=== PATIENT | male | born 1940 | race Caucasian/White ===

== ENCOUNTER 2020-04-14 11:24 | Inpatient (IN) | payer OTHER, BC ==
[~2020-04-14] VITALS: Ht 180.3 cm; Wt 93.0 kg
[2020-04-14 11:25] VITALS: BP 88/55
--- NOTE | 2020-04-14 12:29 | NUR ---
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
[2020-04-14] MEDS ORDERED: ELIQUIS5 MG PO (12:40)
[2020-04-14] MEDS ORDERED: CARVEDILOL12.5 MG PO (12:40)
[2020-04-14] MEDS ORDERED: PRINIVIL20 M1 PO (12:40)
[2020-04-14] MEDS ORDERED: LIPITOR80 MG PO (12:40)
[2020-04-14] MEDS ORDERED: COQ-10100 MG PO (12:40)
[2020-04-14 12:44] LABS: ABSOLUTE NEUTROPHILS 4.5 thou/uL (1.4-8.2); BASOPHILS 0.9 % (0.0-2.0); HEMATOCRIT 48.3 % (42.0-52.0); HEMOGLOBIN 15.9 gm/dL (14.0-18.0); LYMPHOCYTES 28.9 % (24.0-44.0); MCH 27.8 pg (26.0-34.0); MCHC 32.9 g/dL (28.0-37.0); MCV 84.3 fL (80.0-100.0); MONOCYTES 10.7 % (1.0-8.0); PLATELET COUNT 157 thou/uL (150-400); POLYS 55.5 % (36.0-66.0); RBC 5.73 mil/uL (4.50-6.00); RDW 19.1 % (10.5-14.5); WBC 8.2 thou/uL (4.0-11.0)
[2020-04-14] MEDS ORDERED: CARDIO TEA1 EACH PO (12:44)
[2020-04-14] MEDS ORDERED: FISH OIL 1,0001 EAC9 PO (12:44)
[2020-04-14] MEDS ORDERED: LASIX 40 MG TAB40 MG PO (12:45)
[2020-04-14] MEDS ORDERED: ASA81BEC PO (12:45)
[2020-04-14] MEDS ORDERED: NEURONTIN800 MG PO (12:45)
[2020-04-14 12:48] LABS: ANION GAP 7 mmol/L (7-16); BUN 24 mg/dL (7-18); CALCIUM 9.3 mg/dL (8.5-10.1); CHLORIDE 101 mmol/L (98-107); CO2 28 mmol/L (21-32); CREATININE 1.6 mg/dL (0.7-1.3); GLUCOSE 83 mg/dL (74-106); POTASSIUM 4.6 mmol/L (3.5-5.1); SODIUM 136 mmol/L (136-145)
[2020-04-14 12:56] LABS: TROPONIN-I <0.06 ng/mL (<0.06)
--- NOTE | 2020-04-14 13:11 | NUR ---
DR. TAVAREZ AT PHYSICIAN DESK TO DISCUSS PT AND POC WITH DR. MARIA
[2020-04-14 13:18] LABS: ANISOCYTOSIS 1+
[2020-04-14 15:50] VITALS: BP 106/72
[2020-04-14 16:15] VITALS: BP 126/95
--- NOTE | 2020-04-14 18:16 | NUR ---
ADMITTED TO ICU #[id number] WITH CC-TELE OVERFLOW RELATED TO RULE OUT COVID-19 WITH ENHANCED PRECAUTIONS. PT HAS RARE NONPRODUCTIVE COARSE COUGH, ON ROOM AIR, NO RESP DISTRESS. MINOR DISCOMFORT IN L LIP RELATED TO LONG STANDING INTERMITTENT SHINGLES PAIN. CALLED FOR EVENING MEAL AND HAS NOT ARRIVED AT THIS TIME. MEDICATION SECURITY BAG FILLED OUT, SEALED AND SENT TO PHARMACY. DR. TAVAREZ NOTIFIED OF PT ARRIVAL.
--- NOTE | 2020-04-14 18:50 | NUR ---
INITIAL DINNER TRAY DIDN'T ARRIVE WITH ENHANCED PRECAUTIONS. DISCUSSED WITH DIETARY. NEW ORDER PLACED INCLUDING ENHANCED PRECAUTIONS. 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 TOOK TRAY IN SOON IT ARRIVED, LISTENED TO PT CONCERN, EXPLAINED DELAY AND APOLOGIZED FOR THE DELAY.
--- NOTE | 2020-04-14 19:00 | NUR ---
REPORT TO JD AGUILAR.
--- NOTE | 2020-04-14 19:32 | NUR ---
CALLED LAB AT THIS TIME, URINE WAS STILL NOT RECEIVED AND I SENT IT AT 1550 PRIOR TO PT DEPARTING THE UNIT. LAB FOUND IT AND WAS ACCEPTING IT IN.
[2020-04-14 19:35] LABS: URINE BILIRUBIN NEGATIVE (Negative); URINE BLOOD NEGATIVE (Negative); URINE CLARITY CLEAR; URINE COLOR YELLOW; URINE GLUCOSE-RANDOM* NEGATIVE (Negative); URINE KETONES NEGATIVE (Negative); URINE LEUKOCYTES-REFLEX NEGATIVE (Negative); URINE NITRITE-REFLEX NEGATIVE (Negative); URINE PROTEIN (DIPSTICK) NEGATIVE (Negative); URINE SPECIFIC GRAVITY 1.015 (1.005-1.035); URINE UROBILINOGEN 0.2 E.U./dl (0.2-1.0)
[2020-04-14 21:37] VITALS: BP 122/82
[2020-04-14 22:03] VITALS: BP 133/91
[2020-04-15 05:44] LABS: HEMATOCRIT 45.1 % (42.0-52.0); HEMOGLOBIN 14.7 gm/dL (14.0-18.0); MCHC 32.6 g/dL (28.0-37.0); MCV 85.9 fL (80.0-100.0); RBC 5.25 mil/uL (4.50-6.00); RDW 19.1 % (10.5-14.5)
[2020-04-15 06:07] LABS: ALBUMIN 2.8 g/dL (3.4-5.0); CALCIUM 8.4 mg/dL (8.5-10.1); CREATININE 1.6 mg/dL (0.7-1.3); POTASSIUM 4.7 mmol/L (3.5-5.1); TOTAL BILIRUBIN 0.7 mg/dL (0.2-1.0); TOTAL PROTEIN 5.6 g/dL (6.4-8.2)
--- NOTE | 2020-04-15 07:16 | NUR ---
PT X1 NEGATIVE COVID. SECOND COVID WAS SENT THIS AM. PT VITAL SIGNS STABLE. PT ALERT AND ORIENTED x3. PLAN FOR ULTRASOUND TODAY. CONTINUE TO MONITOR. CHART CHECK.
--- NOTE | 2020-04-15 07:24 | EKG ---
[facility] [address] [place] [address] ELECTROCARDIOGRAM REPORT Name: CHERISE SERRANO. Room #: 241-P ADM IN M.R.#: [id number] Admission: 04/14/20 Attend Phys: Fredrick Borja MD Discharge: Date of : 42 Report #: [id number] THIS REPORT FOR: cc: FAM - No family physician/PCP FAM - No family physician/PCP Joel Dunn MD [facility] THIS REPORT FOR: //name// [facility] ED Test Date: 2020-04-14 Test Time: 12:36:16 Pat Name: THOMAS. 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: italo : 1940 Requested By: Derrick Christy Order Number: [id number] MD: Joel Dunn Measurements Intervals [place] Rate: 67 P: [place]: QRS: -19 QRSD: 110 T: 152 QT: 428 QTc: 452 Interpretive Statements Atrial fibrillation Ventricular premature complex Borderline left axis deviation Low voltage, extremity leads Abnrm T, consider ischemia, lateral lds No previous ECG available for comparison Electronically Signed On 04-15-2020 7:23:57 CDT by Joel Dunn [email or web address] <ELECTRONICALLY SIGNED> By: Joel Dunn MD, [facility] 04/15/20 0723 1236 1236 Joel Dunn MD, [facility] /EPI
[2020-04-15 08:47] VITALS: BP 133/73
[2020-04-15 11:34] VITALS: BP 137/83
[2020-04-15 12:00] VITALS: BP 136/74
--- NOTE | 2020-04-15 12:02 | NUR ---
ALERT AND ORIENTED AND VITALS STABLE, DENIES PAIN. WAS NPO FOR US ABDOMEN COMPLETED THIS MORNING. DR. TAVAREZ NOTIFIED OF RESULTS AND DIET OK'D. PATIENT TALKED TO OVER THE PHONE AND UPDATED AND ALSO DR. TAVAREZ STATED HE WILL CALL THE WITH US RESULTS. WILL CONTINUE WITH POC.
--- NOTE | 2020-04-15 12:16 | NUR ---
PATIENT'S SECONG COVID 19 NEG RESULS RECEIVED, PER ALYX MONK, PATIENT MAY BE TAKEN OFF ENHANCED PRECAUTIONS.
--- NOTE | 2020-04-15 15:24 | H ---
[facility] [place] [address] HISTORY AND PHYSICAL Name: CHERISE SERRANO. Room #: [facility]- ADM IN .R.#: [id number] Admission: 04/14/20 Attend Phys: Fredrick Borja MD Discharge: Date of : 42 Report #: [id number] THIS REPORT FOR: cc: [facility] - No family physician/PCP TONY - No family physician/PCP Fredrick Borja MD ~ CC: [facility] physician/PCP Fredrick Borja DATE OF SERVICE: 04/14/2020 CHIEF COMPLAINT: Persistent cough and shortness of breath. HISTORY OF PRESENT ILLNESS: The patient is a 79-year-old male who lives alone. I was contacted by his who currently resides in [place] with their daughter. The told me that the patient has been having problems for at least the last 2 or 3 weeks with coughing severely, loss of appetite and general malaise. He has in the past several months fallen at least twice down stairs in their home but not lately. Nonetheless, even the patient felt unsteady on his feet and has been using a cane lately. He reports easily becoming short of breath trying to climb the stairs, walking through his home. He reports minimal contact with the world outside his home. He has a friend who buys groceries for him sometimes, although he has been shopping in recent weeks and he tends to be rather reclusive. PAST MEDICAL HISTORY: Includes a history of chronic atrial fibrillation, history of coronary artery disease and multiple stent placements at [facility], hypertension, type 2 diabetes mellitus. He was disabled from work, I believe, with the [employer], due to a back problem many years ago. He also has hyperlipidemia. HOME MEDICATIONS: Include enteric-coated aspirin 81 mg by mouth daily, atorvastatin 80 mg by mouth daily, carvedilol 12.5 mg by mouth twice daily, fish oil 1000 mg by mouth twice daily, furosemide 40 mg by mouth every morning, gabapentin 800 mg by mouth every night, lisinopril 20 mg by mouth daily, Coenzyme Q10 100 mg by mouth twice daily, Eliquis 5 mg by mouth twice daily. He also uses cardio tabs tea extract supplements daily. ALLERGIES: He has no known drug allergies. FAMILY HISTORY: Significant for longevity. SOCIAL HISTORY: The patient is retired, disabled times many years. He and his are currently . He has as a stressor the knowledge that his daughter has developed a sudden spinal condition and is unable to walk and is having an MRI today to assess her. He has no vices such as smoking or [address] [address] HISTORY AND PHYSICAL Name: CHERISE SERRANO. Room #: [facility] IN ..#: [id number] Admission: 04/14/20 Attend Phys: Fredrick Borja MD Discharge: Date of : 42 Report #: [id number] recreational drug or alcohol use. The patient's favorite hobby is using his metal detector to find old coins and civil war relics and such. REVIEW OF SYSTEMS: No headaches. He does have some slight dizziness when he ambulates too quickly. Falls as described above, otherwise he has been using a cane and has not had a fall in several months. No chest pain. His appetite is not very good lately but no nausea or vomiting. No leg swelling problems. No new back pain issues. PHYSICAL EXAMINATION: VITAL SIGNS: At my office today, the patient's pulse was 59. His oxygen saturation on room air was 96%. His blood pressure was 128/68, but this was quite diminished in the Emergency Room and his systolic blood pressure was at one point recorded in the high 70s. His respiratory rate was 16-20. GENERAL: The patient is unkempt, older white male with shortness of breath after minimal exertion. HEENT: The extraocular muscles are intact. Oropharynx is moist and pink. No lesions, no exudates. Sinuses are nontender and hearing grossly normal. NECK: Without adenopathy or thyromegaly or mass. No jugular venous distention. LUNGS: Coarse to listen to as regards breath sounds bilaterally. I did not hear any wheezing. CARDIOVASCULAR: Reveals an irregularly irregular but slow rhythm. ABDOMEN: Soft. Bowel sounds are present. No visceromegaly or masses. EXTREMITIES: Without cyanosis or clubbing or peripheral edema. NEUROLOGIC: Cranial nerves II-XII are intact. Cranio-cerebellar exam is benign except that the gait does require the cane for balance. No focal deficits of general motor function, although his strength is clearly diminished recently. I watched him get up from the chair and he needed both arms to be able to get out of a normal waiting room chair. He did not have a Romberg test today. ASSESSMENT AND PLAN: 1. Probable chronic obstructive pulmonary disease exacerbation, possibly due to the COVID-19 - We will start the patient on intravenous antibiotics and will also give some intravenous steroids. His labs did not suggest severe disease, but with a history of falls and the persistent coughing and loss of appetite, this patient is at very high risk for having falls. He does admit to getting dizzy when he stands up. I will admit him and provide a couple of serial tests for COVID-19 to make sure that he is not getting sick from that virus. We will aggressively manage his pulmonary problems and repeat a chest x-ray in the next day or 2 since his first one was otherwise benign. He does have a nodule that is probably calcified granuloma in the apex, I believe, on the left side. 2. Hypotension - is this developing sepsis ? We will hydrate cautiously. I would like to avoid excessive rehydration and potential congestive heart failure from overly aggressive fluid replacement. 3. Type 2 diabetes mellitus - I would expect his blood sugars to rise with the steroids, but his overall control has been reasonably good in the last couple of [facility] [address] [place] [address] HISTORY AND PHYSICAL Name: CHERISE SERRANO. Room #: [address] [place] [address] [place] [facility]#: [id number] Admission: 04/14/20 Attend Phys: Fredrick Borja MD Discharge: Date of : 42 Report #: [id number] years. He visits the office infrequently. 4. Postherpetic neuralgia - the patient has had this problem for several years and uses the gabapentin to help control the burning. 5. Coronary artery disease - this is currently asymptomatic. <ELECTRONICALLY SIGNED> By: Fredrick Borja MD 04/15/20 1524 2138 Fredrick Borja MD /nt
[2020-04-15 16:00] VITALS: BP 118/73
--- NOTE | 2020-04-15 16:51 | NUR ---
PER DR. TAVAREZ AFTER ASSESSING PATIENT EARLIER TODAY, ADMISSION STATUS CHANGED TO MS.
--- NOTE | 2020-04-15 17:21 | NUR ---
Chart reviewed and case discussed with the attending. Pt is currently in ICU r/o covid. His pcp is Dr. Borja who notes that pt's spouse stays in [place] with their dtr. She is reachable via her cell phone and she is aware that he is here. The pt lives alone in their home of many years. He is normally indep with gait and adl's but did acknowledge to the attending that he had had a couple of falls on the basement stairs. PT/OT evals are pending. [place] benefit [place] f[place] and his may be coming back in town. He has some extended family here as well but tends to be isolated socially. Will f/u along and visit with the pt once he is out of enhanced precautions.
--- NOTE | 2020-04-15 23:25 | NUR ---
TRANSFER TO [facility] AND REPORT GIVEN TO SHIFT TO ASSUME NURSING CARE OF PT. WILL TRANSFER WITH ALL BELOINGINGS
[2020-04-16 00:25] VITALS: BP 118/78
--- NOTE | 2020-04-16 00:49 | NUR ---
PT ARRIVED FROM ICU AT 0015. DENIES PAIN. VOIDING PER URINAL. RESTING COMFORTABLY. CALL LIGHT WITHIN REACH. FREQUENT OBSERVATION.
[2020-04-16 04:51] VITALS: BP 99/62
[2020-04-16 08:00] VITALS: BP 122/74
--- NOTE | 2020-04-16 14:50 | NUR ---
SW reviewed chart and spoke with nursing. Pt was transferred to from ICU. Pt's COVID-19 test was negative. Pt remains on IV abx. JEREMIAS met with pt at bedside. Plan is for pt to return home when medically stable. Pt states he normally uses a cane to assist with ambulation. PT/OT ordered to evaluate pt. SW is following to assist as needed with discharge planning.
--- NOTE | 2020-04-16 16:45 | EKG ---
[facility] [address] [place] [address] ELECTROCARDIOGRAM REPORT Name: CHERISE SERRANO. Room #: 360-P ADM IN M.R.#: [id number] Admission: 04/14/20 Attend Phys: Fredrick Borja MD Discharge: Date of : 42 Report #: [id number] THIS REPORT FOR: cc: TONY - Brittany family physician/PCP TONY - Brittany family physician/PCP Joel Dunn MD [facility] THIS REPORT FOR: //name// [facility] Test Date: 2020-04-16 Test Time: 08:38:05 Pat Name: THOMAS. 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[facility] : 1940 Requested By: Claribel Thorpe Order Number: [id number] MD: Joel Dunn Measurements Intervals [place] Rate: 84 P: [place]: QRS: -20 QRSD: 114 T: 147 QT: 386 QTc: 457 Interpretive Statements Atrial fibrillation Ventricular premature complex Borderline intraventricular conduction delay Abnrm T, consider ischemia, anterolateral lds Compared to ECG 04/14/2020 12:36:16 No significant changes Electronically Signed On 04-16-2020 16:44:45 CDT by Joel Dunn [email or web address] <ELECTRONICALLY SIGNED> By: Joel Dunn MD, [facility] 04/16/20 1644 0838 0838 Joel Dunn MD, [facility] /EPI
[2020-04-16 17:00] VITALS: BP 123/81
--- NOTE | 2020-04-16 18:16 | NUR ---
ASSUMED PATIENT CARE TODAY AT APPROXIMATELY 7AM. PATIENT AWAKE ORIENTED THROUGHOUT SHIFT, ASSESSMENT AND MEDS CHARTED. PATIENT RECIEVING IV STEROIDS AND BLOOD GLUCOSE ELEVATED THROUGHOUT SHIFT, CHANGED SS FROM LOW TO MODERATE SCALE THIS SHIFT PER FACILITY PROTOCOL AND PATIENT TOLERATED WELL. TOLERATING DIET. VSS. WORKING WITH PT/OT WALKING IN HALLWAY AND STAIRWELL. UP IN BEDSIDE CHAIR FROM BREAKFAST TIME UNTIL AFTER LUNCH. BED LINEN CHANGED AND GIVEN BED BATH BY OT THIS SHIFT. PATIENT GIVEN LAXATIVE THIS SHIFT FOR BM, NO BM YET SINCE MONDAY ALSO GAVE ORDER FOR ANOTHER LAXATIVE FOR TOMORROW IN AM IF HE STILL DOES NOT HAVE A BM.
[2020-04-16 21:00] VITALS: BP 129/79
[2020-04-17 04:45] VITALS: BP 119/71
[2020-04-17 05:43] LABS: HEMATOCRIT 44.6 % (42.0-52.0); HEMOGLOBIN 14.4 gm/dL (14.0-18.0); MCHC 32.2 g/dL (28.0-37.0); RBC 5.12 mil/uL (4.50-6.00); RDW 19.2 % (10.5-14.5)
[2020-04-17 05:59] LABS: CALCIUM 7.8 mg/dL (8.5-10.1); CREATININE 1.8 mg/dL (0.7-1.3); POTASSIUM 4.4 mmol/L (3.5-5.1)
[2020-04-17 07:48] VITALS: BP 131/86
[2020-04-17 15:30] VITALS: BP 129/82
--- NOTE | 2020-04-17 15:34 | NUR ---
ASSUMED PATIENT CARE AT APPROXIMATELY 0700 THIS MORNING. PATIENT AWAKE AND ALERT, VSS. MEDS AND ASSESSMENTS CHARTED. WORKED WITH PT/ OT THIS SHIFT. WAS ABLE TO HAVE SHOWER THIS MORNING. PATIENT ABLE TO COUGH UP THICK WHITE MUCUS THIS AFTERNOON. FLUTTER VALVE ORDERED FOR PATIENT. ENCOURAGED PATIENT TO PERFORM WITH HOURLY ROUNDING. PATIENT DEMONSTRATES UNDERSTANDING OF USE OF FLUTTER VALVE.
[2020-04-17 19:18] VITALS: BP 131/89
--- NOTE | 2020-04-17 22:49 | NUR ---
ASSUMED PT CARE AT 1900. PT A&OX4, PLEASANT - CRACKING JOKES. REPORTS PAIN TO LEFT SIDE OF FACE DUE TO SHINGLES. COARSE PRODUCTIVE COUGH NOTED. NO BM THUS FAR, PT IS BECOMING QUITE FRUSTRATED. LITTLE BOWEL SOUNDS HEARD. ANTIBIOTICS AND FLUIDS INFUSING PER ORDER. NO SIGNIFICANT CHANGES OF RIGHT NOW, WILL CONTINUE TO MONITOR.
[2020-04-18 06:02] VITALS: BP 129/89
[2020-04-18 07:48] VITALS: BP 149/92
--- NOTE | 2020-04-18 13:06 | NUR ---
PT IS A&OX3, PT 'S VS ARE STABLE, PT STILL HAS COUGHING, BUT PT DENIES SOB , PT IS CONTINUING IV FLUID, PT HAS WALK IN HALLWAY WITH PT, PT STAYS IN CHAIR NOW.
[2020-04-18 15:21] VITALS: BP 127/84
[2020-04-18 19:06] VITALS: BP 114/72
--- NOTE | 2020-04-19 04:32 | NUR ---
ASSESSMENT: PT REMAIN ALERT AND ORIENT TIMES FOUR. UP TO BR TIMES ONE DURING THE SHIFT. C/O MILD FACIAL PAIN RATE PAIN 1-2/10 ON NUMERIC PAIN SCALE. PT SLEPT WELL DURING THE NIGHT POST EATING A HS SNACK. STILL NO BM TIMES FOUR DAYS. MIRALAX AND SENNA ARE SCHEDULED. AFIB PER MONITOR, OCCASSIONAL V-PACED. AICD NOTED IN LEFT UPPER CHEST AREA. BLOOD PRESSURE ELEVATED (SEE REVIEW). DENIES DIZZINESS, RINGING IN THE EARS, BLURRED VISION. WILL CONTINUE TO MONITOR. SLOW PROGRESS.
[2020-04-19 05:22] VITALS: BP 158/106
[2020-04-19 07:34] VITALS: BP 148/101
[2020-04-19 15:30] VITALS: BP 123/76
--- NOTE | 2020-04-19 17:26 | NUR ---
PT CARE ASSUMED AT 0700, PT ALERT AND ORIENTED X4, HARD OF HEARING AT TIMES. PT DENIES ANY CHEST PAIN, NAUSEA AND VOMITING. PT COMPLAINS OF PAIN WITH COUGH, SOUNDS CONGESTED, YET NON PRODUCTIVE. PT IS ON ROOM AIR, NO SIGNS OF DISTRESS NOTED. PT COMPLAINS OF CONTIPATION BOWEL SOUNDS ACTIVE,USES THE URINAL. DENIES ANY NEEDS ROSMERY, CALL LIGHT AND TABLE WITHIN REACH. BED AT LOWEST LEVELW WITH ALARM ON.
[2020-04-19 19:15] VITALS: BP 126/82
--- NOTE | 2020-04-19 20:56 | NUR ---
UPON ASSESSMENT PT WAS PLEASANT. RN TALKED ABOUT POSSIBLE DISCHARGE AND CARE PLAN AT THIS TIME AND PAIN MANAGEMENT WELL, PT STATED THAT ONLY THING THAT REALLY HELPS IS A WARM CLOTH OF THE L SIDE OF THE FACE. WARMED WET CLOTH WAS PROVIDED PER PT REQUEST. AT THIS TIME PT STATED BEING COMFORABLE. BILATERALLY THE UPPER LOBES WERE WHEEZY AND DIM ON THE BOTTOM. GI, PT'S ABDOMEN IS RIGID AND TYPHANIC UPON PERCUSSION AND HYPOACTIVE UPON AUSCULTATION. NO ABDOMINAL PAIN AT THIS TIME AND PT IS STILL PASSING GAS. BOWEL REGIMEN IS BEING FOLLOWED. WILL CONTINUE TO FOLLOW POC
[2020-04-20 03:10] VITALS: BP 126/82
[2020-04-20 07:27] VITALS: BP 142/99
--- NOTE | 2020-04-20 10:52 | NUR ---
CARE ASSUMED AT 0700, PT ALERT AND ORIENTED X4, HEARD OF HEARING AT TIMES. PT DENIES ANY CHEST PAIN, NAUSEA AND VOMITNG. PT HAS A STRONG NON PRODUCTIVE COUGH, NO SIGNS OF DISTRESS NOTED. PT HASNT HAD A BOWEL MOVEMENT FOR ALMOST A WEEK, STOOL SOFTNER AND MIRALX BEING GIVEN PER ORDER. BOWELS HYPOACTIVE, HARD WHEN PALPATED. CALL LIGHT AND TABLE IN REACH. BED AT LOWEST LEVEL WITH ALARM.
--- NOTE | 2020-04-20 13:40 | NUR ---
JEREMIAS reviewed chart and spoke with nursing. Pt remains on IV steroids and IV abx. Therapy has been working with pt to assist with recommendations for discharge needs. JEREMIAS placed call to pt's room. No answer. JEREMIAS is following to assist as needed with discharge planning.
--- NOTE | 2020-04-20 14:50 | NUR ---
Assess for length of stay. admit with copd exacerbation, covid negative. Hx diabetes and BG more aggravated by steroids. BG 256-336 and past A1C 7. Eating 100% of meals. Will add carb control to regular diet, otherwise low nutrition risk
[2020-04-20 15:31] VITALS: BP 135/89
[2020-04-20 20:11] VITALS: BP 132/95
--- NOTE | 2020-04-21 04:35 | NUR ---
PT SLEPT MOST OF THE NIGHT. RESPIRATIONS EVEN AND UNLABORED. PT DID STATE THAT HE STILL FEELS SOA WITH EXERTION. NON-PRODUCTIVE COUGH NOTED. PT DID C/O SOME SORENESS IN HIS CHEST WITH COUGHING, BUT DID NOT WANT ANY PAIN MEDICATION. GOOD URINE OUTPUT. FALL PRECAUTIONS IN PLACE, EXCEPT PT REFUSED BED ALARM. HE UNDERSTANDS HE NEEDS TO CALL FOR ASSISTANCE BEFORE GETTING UP. HE HAS BEEN COMPLIANT WITH INSTRUCTION. PROGRESSING TOWARD POC GOALS. WILL CONTINUE TO MONITOR.
[2020-04-21 06:40] VITALS: BP 160/113
[2020-04-21 07:59] VITALS: BP 152/107
--- NOTE | 2020-04-21 14:27 | NUR ---
ORDERS FOR TRANSFER TO [facility], [place] [id number]. REPORT GIVEN TO JD DIAMOND. PT BELONGING PACKED AND SENT DOWN WITH PT
[2020-04-21 15:09] VITALS: BP 142/95
--- NOTE | 2020-04-21 15:17 | NUR ---
ASSUMED PATIENT CARE THIS AM AT APPROXIMATELY 7AM. PATIENT REMAINED AWAKE AND ORIENTED THIS SHIFT. WORKED WITH PHYSICAL THERAPY AND AMBULATED IN HALLWAY AND STAIRS THIS SHIFT. WORKED WITH OT AND HAD BATH, THERAPIST INFORMED NURSE THAT PATIENT TOLERATED WELL BUT REQUIRED BREAKS FOR SOME SHORTNESS OF BREATH. ASSESSMENTS AND MEDS CHARTED. PATIENT TRANSFERRED TO 4W THIS SHIFT.
--- NOTE | 2020-04-21 19:47 | NUR ---
Assumed pt care this pm, [facility]. VS stable blood sugar monitoring with medicatiosn given as per emar. Pt is up ad jeremiah , vs is able. POC followed with no signs or verbalizations of distress noted. Endorsed to the night nurse.
[2020-04-21 20:25] VITALS: BP 107/79
--- NOTE | 2020-04-22 04:36 | NUR ---
Pt. rested quietly during the night when checked on during frequent rounds. Up to the bathroom with stand by assistance. Pt. voices some soreness from coughing in upper abdomen, but no need for pain med. No c/o shortness of air.
[2020-04-22 06:16] LABS: HEMATOCRIT 47.5 % (42.0-52.0); HEMOGLOBIN 15.5 gm/dL (14.0-18.0); MCH 28.2 pg (26.0-34.0); MCHC 32.6 g/dL (28.0-37.0); MCV 86.6 fL (80.0-100.0); RBC 5.49 mil/uL (4.50-6.00); RDW 19.8 % (10.5-14.5); WBC 10.8 thou/uL (4.0-11.0)
[2020-04-22 06:41] LABS: CALCIUM 8.1 mg/dL (8.5-10.1)
[2020-04-22 06:49] LABS: POTASSIUM 6.1 mmol/L (3.5-5.1)
[2020-04-22 07:09] VITALS: BP 144/95
[2020-04-22 08:56] LABS: CALCIUM 8.2 mg/dL (8.5-10.1); CREATININE 2.1 mg/dL (0.7-1.3)
[2020-04-22 08:58] LABS: POTASSIUM 5.7 mmol/L (3.5-5.1)
--- NOTE | 2020-04-22 12:30 | NUR ---
Assumed pt care this am, VS stable lung sounds are coarse. Pain noted on accessory muscles used for coughing. Pt stated thiscough is so much batter compared to precous days, this is the best he has been. Xray done, seen by , orders received for pt to transfer back to [facility] for covid rule out. Report given to nurse, pt has been transferred via bed to [facility]. POC followed with no signs or verbaliuzation of distress noted.
[2020-04-22 17:17] VITALS: BP 116/73
--- NOTE | 2020-04-22 18:14 | NUR ---
ASSUMED CARE APPROX 1230. PT TRANSFERRED FROM 4 TO THIS UNIT. ALERT AND ORIENTED X4. ASSESSMENT CHARTED AND VSS. COVID SWAB OBTAINED. AWAITING RESULTS. PT DENIES ACUTE PAIN. PT ON ROOM AIR. NO RESPIRATORY DISTRESS OR DYSPNEA NOTED. WILL CONTINUE TO MONITOR.
[2020-04-22 19:15] VITALS: BP 116/89
--- NOTE | 2020-04-22 19:40 | NUR ---
COVID NEGATIVE, SPOKE TO DR. LOONEY, HE WILL LOOK AT INFORMATION FOR PT.
--- NOTE | 2020-04-22 19:48 | NUR ---
PT SLEEPING IN BED, OPENED EYES FOR VS AND ASSESSMENT. FACE REDDENED, LUNGS WITH WHEEZES. BED ALARM ON. IV INTACT.
--- NOTE | 2020-04-22 19:53 | NUR ---
DR LOONEY AND DR TAVAREZ NOTIFIED OF NEG COVID RESULTS. NO NEW ORDERS.
[2020-04-23 05:13] VITALS: BP 114/83
[2020-04-23 06:31] LABS: HEMATOCRIT 46.3 % (42.0-52.0); HEMOGLOBIN 15.3 gm/dL (14.0-18.0); MCH 28.6 pg (26.0-34.0); MCHC 33.1 g/dL (28.0-37.0); MCV 86.4 fL (80.0-100.0); RBC 5.35 mil/uL (4.50-6.00); RDW 20.3 % (10.5-14.5); WBC 10.3 thou/uL (4.0-11.0)
[2020-04-23 07:09] LABS: ALBUMIN 2.3 g/dL (3.4-5.0); CALCIUM 7.6 mg/dL (8.5-10.1); CREATININE 1.7 mg/dL (0.7-1.3); POTASSIUM 5.2 mmol/L (3.5-5.1); TOTAL BILIRUBIN 0.6 mg/dL (0.2-1.0); TOTAL PROTEIN 4.9 g/dL (6.4-8.2)
[2020-04-23 07:31] VITALS: BP 124/92
--- NOTE | 2020-04-23 10:59 | NUR ---
report from bedside nurse, possible can come off isolation. uziel iv medication. will cont following as needed for dc needs. dc home when medical stable for dc.
[2020-04-23 16:58] VITALS: BP 125/76
[2020-04-23 19:58] VITALS: BP 111/72
[2020-04-24 04:07] VITALS: BP 110/68
--- NOTE | 2020-04-24 05:37 | NUR ---
PT PROGRESSING TOWARDS DC POSSIBLE TODAY PER PCP IF AM LABS ARE SHOWING IMPROVEMENT. FOLLOWING POC WITH IVF GTT. PT WAS CLEARED BY ID TO BE REMOVED FROM ISOLATION COVID-. PT VOIDS VIA URINAL AND AMBULATES WITH CANE AND STAND BY ASSIST. HOURLY ROUNDING.
[2020-04-24 08:03] VITALS: BP 122/80
[2020-04-24] MEDS ORDERED: CEFDINIR300 MG PO (10:53)
[2020-04-24] MEDS ORDERED: NYSTATIN100000 UNI SW&SWALLOW (10:53)
[2020-04-24] MEDS ORDERED: IPRAT-ALBUT 0.5-3 ML INH (10:54)
[2020-04-24] MEDS ORDERED: GABAPENTIN 100100 MG PO (10:56)
[2020-04-24] MEDS ORDERED: BENZONATATE100 MG PO (10:56)
[2020-04-24] MEDS ORDERED: GUAIFEN-CODEINE10 ML PO (10:57)
[2020-04-24] MEDS ORDERED: MIRALAX17 GM PO (10:58)
[2020-04-24] MEDS ORDERED: SENNA-TIME S T1 EACH PO (10:58)
[2020-04-24] MEDS ORDERED: PREDNISONE 10 M10 MG PO (10:59)
[2020-04-24] MEDS ORDERED: PREDNISONE 20 M20 M1 PO (10:59)
[2020-04-24] MEDS ORDERED: HUMALOG100 UNIT/1 SUBQ (11:00)
[2020-04-24] MEDS ORDERED: GLUCAGEN1 MG/1 ML IM (11:01)
[2020-04-24 11:06] VITALS: BP 118/82
[2020-04-24 11:10] LABS: HEMATOCRIT 48.1 % (42.0-52.0); HEMOGLOBIN 15.9 gm/dL (14.0-18.0); MCH 28.6 pg (26.0-34.0); MCV 86.8 fL (80.0-100.0); RBC 5.55 mil/uL (4.50-6.00); RDW 20.3 % (10.5-14.5); WBC 10.7 thou/uL (4.0-11.0)
[2020-04-24 11:34] LABS: CALCIUM 7.7 mg/dL (8.5-10.1); CREATININE 1.8 mg/dL (0.7-1.3); POTASSIUM 5.1 mmol/L (3.5-5.1)
--- NOTE | 2020-04-24 11:51 | NUR ---
ASSUMED CARE AT 0700, SHUFT ASSESSMENT DONE, MEDS GIVEN, VSS. DENIES PAIN, NAUSEA, VOMITING. ROOM AIR, UP WITH STANDBY ASSIST. AFIB ON THE MONITOR. COVID NEGATIVE. WILL CONTINUE TO ASSESS AND ASSIST WITH ADLs.
[2020-04-24 15:30] VITALS: BP 118/82
--- NOTE | 2020-04-24 16:18 | D ---
[facility] [address] [place] [address] DISCHARGE SUMMARY Name: CHERISE SERRANO. Room #: 360-P ADM IN ..#: [id number] Admission: 04/14/20 Attend Phys: Fredrick Borja MD Discharge: Date of : 41 Report #: [id number] THIS REPORT FOR: cc: TONY - No family physician/PCP TONY - No family physician/PCP Fredrick Borja MD ~ THIS REPORT FOR: //name// CC: Cody Kellogg MD [facility] physician/PCP Bruna Borja DATE OF SERVICE: 04/24/2020 HOSPITAL COURSE: The patient is a 79-year-old male who presented with persistent cough for a month and increasing problems with shortness of breath. He was sent to the Emergency Room for further evaluation and felt to be a reasonable admission for suspected COVID-19 viral infection and was started on aggressive respiratory treatments, IV antibiotics and steroids. His COVID test came back negative and he responded slowly, but appropriately to respiratory therapy and antibiotics and steroids as described above. He was also hypotensive. There was a concern that he might be developing sepsis and was started on intravenous fluids to which he responded appropriately. He presented with a creatinine of 1.6 which eventually aramis to 2.1. His BUN was consistently in the 55 to just over 60 range. Our impression is that he has chronic kidney disease, stage 2 to stage 3 and it suddenly worsened during this hospital stay. He developed hyperkalemia with a potassium of 6.1 at one point. He was taken off of lisinopril, 40 mg daily. The diuretics were continued; Lasix was used daily to help bring down his potassium level which was down to 5.1 by the date of discharge. The patient does have a history of coronary artery disease and it is with trepidation that I took him off of his SANFORD inhibitor. Strongly recommended that he be seen by his program proposals coordinator at [facility], Dr. Mo Krishnamurthy for reassessment of this regimen for managing his afterload reduction in renal function. The patient does have type 2 diabetes mellitus as well and would benefit from being able to take an SANFORD inhibitor or an ARB. However, given the sudden onset of acute renal insufficiency, I would refer the patient to recover from his immediate illness before we attempt any other interventions. Approximately 48 hours prior to this discharge, we obtained a chest x-ray for [address] [address] DISCHARGE SUMMARY Name: CHERISE SERRANO. Room #: 360-P [facility]#: [id number] Admission: 04/14/20 Attend Phys: Fredrick Borja MD Discharge: Date of : 41 Report #: [id number] followup, the patient developed some basilar congestion and had begun coughing up mucus plugs. The chest x-ray did show some basilar infiltrates on the right and this was consistent with physical gym. Because of concerns that he may have developed COVID-19 infection while hospitalized, that test was repeated. The patient was moved back into isolation and an Infectious Diseases consult was obtained with Dr. Cody Kellogg. The COVID-19 repeat study was also negative. Dr. Kellogg felt the "infiltrate" was in fact merely atelectasis on the chest x-ray. At the time of discharge, the patient will be going home on cefdinir 300 mg by mouth twice a day for an additional 5 days. He will be on a prednisone steroid taper. He will continue on apixaban 5 mg by mouth twice daily, aspirin 81 mg by mouth daily, atorvastatin calcium 80 mg by mouth daily, Tessalon Perles 100 mg by mouth twice daily, carvedilol 12.5 mg by mouth twice daily, Coenzyme Q10 100 mg by mouth twice daily, fish oil 1000 mg by mouth twice daily, furosemide 40 mg by mouth every morning, gabapentin 100 mg by mouth in the morning and at lunchtime followed by 800 mg at bedtime every night, Robitussin-AC 2 teaspoons by mouth every 6 hours as needed for control of cough, nystatin swish and swallow a teaspoon by mouth 4 times a day for another 10 days to treat oropharyngeal current candidiasis, MiraLax 17 grams in a glass of water by mouth twice daily for constipation, Senokot-S one tablet by mouth twice daily has been discontinued. Prednisone taper will be as follows: The patient will get 20 mg daily for 5 more days, then 10 mg daily for 5 more days and then it stops. The patient will follow up with Dr. Borja in 2 weeks. He is to follow up with his program proposals coordinator at the first available appointment with them. DISCHARGE DIAGNOSES: Will be as follows: 1. Chronic kidney disease, stage 2. 2. Acute kidney injury. 3. Chronic obstructive pulmonary disease exacerbation. 4. Hypotension. 5. Oropharyngeal candidiasis. 6. Type 2 diabetes mellitus and steroid hyperglycemia. 7. Chronic atrial fibrillation. 8. Postherpetic neuralgia involving C1. 9. Hypertension history. 10. Hyperlipidemia and coronary artery disease. 11. Newly diagnosed abdominal aortic aneurysm (approximately 3 cm in size). [facility] [address] [place] [address] DISCHARGE SUMMARY Name: CHERISE SERRANO. Room #: 360-P [facility] IN M.R.#: [id number] Admission: 04/14/20 Attend Phys: Fredrick Borja MD Discharge: Date of : 41 Report #: [id number] I have recommended to the patient that he have a followup ultrasound of his abdominal aortic aneurysm at least annually going into the future. <ELECTRONICALLY SIGNED> By: Fredrick Borja MD 04/24/20 1618 1149 1220 Fredrick Borja MD /nt
== END 2020-04-24 17:07 | disposition home health service (06) | DRG 190 ==
LOC: ER 11:24 → 3W 13:14 → EROBS 13:14 → ICU 13:14 → 3W 04-15 23:48 → 4W 04-21 14:48 → 3W 04-22 10:11
PROVIDERS: Emergency Medicine; ADMIT Internal Medicine; ATTEND Internal Medicine
DX: J44.0 Chronic obstructive pulmonary disease with (acute) lower respiratory infection (principal); J18.9 Pneumonia, unspecified organism; B02.29 Other postherpetic nervous system involvement; N17.9 Acute kidney failure, unspecified; I48.20 Chronic atrial fibrillation, unspecified; B37.0 Candidal stomatitis; J44.1 Chronic obstructive pulmonary disease with (acute) exacerbation; I95.9 Hypotension, unspecified; N18.3 Chronic kidney disease, stage 3 (moderate); E87.5 Hyperkalemia; I25.10 Atherosclerotic heart disease of native coronary artery without angina pectoris; E11.22 Type 2 diabetes mellitus with diabetic chronic kidney disease; E11.65 Type 2 diabetes mellitus with hyperglycemia; I12.9 Hypertensive chronic kidney disease with stage 1 through stage 4 chronic kidney disease, or unspecified chronic kidney disease; E78.5 Hyperlipidemia, unspecified; I71.4 Abdominal aortic aneurysm, without rupture; K59.00 Constipation, unspecified; E86.0 Dehydration; Z20.828 Contact with and (suspected) exposure to other viral communicable diseases; Z95.5 Presence of coronary angioplasty implant and graft; Z79.899 Other long term (current) drug therapy
CPT/HCPCS: 10040; 10045; 10080; 10203; 10879

== ENCOUNTER 2020-05-01 17:06 | Inpatient (IN) | payer OTHER, BC ==
[~2020-05-01] VITALS: Ht 180.3 cm; Wt 92.1 kg
--- NOTE | ~2020-05-01 | HC ---
[facility] [address] [place] [address] CONSULTATION Name: CHERISE SERRANO Room #: 451-[facility] IN M.R.#: [id number] Admission: 05/01/20 Attend Phys: Joselyn Su Discharge: Date of : 41 Report #: [id number] THIS REPORT FOR: cc: TONY - Brittany family physician/PCP TONY - Brittany family physician/PCP Eric Cortez MD ~ CC: [facility] physician/PCP Joselyn Su DATE OF SERVICE: 05/01/2020 HISTORY OF PRESENT ILLNESS: The patient is a 79-year-old white male with history of multiple falls over the last couple of weeks, especially the last couple of days. He apparently had 20+ falls the day of admission. He is noted to have atrial fibrillation and has been on long-term anticoagulation. He is supposed to use a walker at home because of his balance problems, but at home, he was noted to not be fit for a walker, so he often does not use it. He uses a cane. He did apparently hit his head approximately [address] of the head was negative. He was diagnosed with some mild hypotension given a liter of fluid. He was noted to have acute renal insufficiency superimposed on chronic kidney disease. He also has some complaints of shortness of breath and there was concern regarding aspiration and he has been treated with Solu-Medrol IV, which he is currently on and following chest x-ray. He is also on levofloxacin. He is a past smoker. Chest x-ray showed some left lower lobe opacities, could be due to atelectasis or pneumonia. Speech therapy saw him and he did undergo a video swallow study with recommendations for mechanical soft, ground diet with some ongoing instructions recommended. He does tend to fatigue with mastication and swallowing. We are seeing him in rehabilitation medicine consultation. PAST MEDICAL HISTORY: Includes atrial fibrillation, on long-term anticoagulation, history of an SD, coronary artery disease with cardiac stents, diabetes mellitus type 2, shingles, hypertension, hyperlipidemia, chronic back pain, COPD, peripheral neuropathy, and postherpetic neuralgia. PAST SURGICAL HISTORY: Cholecystectomy, deviated septum repair, AICD with pacemaker placement. MEDICATIONS: Please see the full medication listing. ALLERGIES: LISINOPRIL. SOCIAL HISTORY: Lives in a house alone. He notes he is , but and his lives in [place] apparently near their daughter. He has two sisters in the area that are involved and are retired. He notes his house has a lot of [facility] [address] [place] [address] CONSULTATION Name: CHERISE SERRANO Room #: 451-P [facility] IN .R.#: [id number] Admission: 05/01/20 Attend Phys: Joselyn Su Discharge: Date of : 41 Report #: [id number] things in the hallway boxes, etc. apparently from his mother and from his and other family members. Apparently, his sisters have tried to clear some of it out in the past, but he still has a lot in the way. He has 3 steps in with 12 to the basement. No handrails. 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 FAMILY HISTORY: Noncontributory. REVIEW OF SYSTEMS: Notes some shortness of breath with decreasing activity. Notes that his legs are just overall weak and that they can turn to jelly. He has some decreased sensation in distal lower extremities. No current chest pain and no abdominal discomfort. PHYSICAL EXAMINATION: GENERAL: A 79-year-old white male in no obvious distress. VITAL SIGNS: He has a temperature of 36.6, pulse 86, respirations 18, and blood pressure 105/102. NEUROLOGIC: He is alert. He does follow basic 1 step commands. Facies appeared symmetric. There is some definite delay in his responses, but he appears reasonably appropriate. Facies are symmetric. Nasal prong O2 is in place. EXTREMITIES: Functional range of motion of both upper extremities. Strength is grade 4-/5. DTRs are trace to 1. Lower extremities, no focal calf swelling, functional range of motion, strength is grade 3+ to 4-/5. He has been min assist coming to stand and has been ambulating with min assist with a cane with decreased balance. He does have decreased sensation, left large toe to proprioception with some decrease in stocking distribution. ASSESSMENT: A 79-year-old white male with the following problems: 1. Multifactorial gait instability. 2. Multiple falls. 3. Hypotension with hypertension. 4. Acute renal insufficiency superimposed on chronic kidney disease. 5. Respiratory insufficiency, currently on IV Solu-Medrol. 6. History of chronic obstructive pulmonary disease. 7. Peripheral neuropathy. 8. Diabetes mellitus type 2. 9. Past tobacco. PLAN: Physical therapy to work with him again today as well as occupational therapy to evaluate. We are considering him for an acute [address] [place] [address] inpatient rehabilitation stay[address] [address] CONSULTATION Name: CHERISE SERRANO Room #: 451-P [facility] IN M.R.#: [id number] Admission: 05/01/20 Attend Phys: Joselyn Su Discharge: Date of : 41 Report #: [id number] Thank you for asking us to assist in this patient's care. By: 1550 0142 Eric Cortez MD /nt
[~2020-05-01 17:06] MED LIST: ASA81BEC PO; BENZONATATE100 MG PO; CARDIO TEA1 EACH PO; CARVEDILOL12.5 MG PO; CEFDINIR300 MG PO; COQ-10100 MG PO; ELIQUIS5 MG PO; FISH OIL 1,0001 EAC9 PO; GABAPENTIN 100100 MG PO; GLUCAGEN1 MG/1 ML IM; GUAIFEN-CODEINE10 ML PO; HUMALOG100 UNIT/1 SUBQ; IPRAT-ALBUT 0.5-3 ML INH; LASIX 40 MG TAB40 MG PO; LIPITOR80 MG PO; MIRALAX17 GM PO; NEURONTIN800 MG PO; NYSTATIN100000 UNI SW&SWALLOW; PREDNISONE 10 M10 MG PO; PREDNISONE 20 M20 M1 PO; PRINIVIL20 M1 PO; SENNA-TIME S T1 EACH PO
[2020-05-01 17:13] VITALS: BP 73/42
[2020-05-01 18:26] LABS: ABSOLUTE NEUTROPHILS 5.6 thou/uL (1.4-8.2); BASOPHILS 0.9 % (0.0-2.0); EOSINOPHILS 1.4 % (0.0-3.0); HEMATOCRIT 36.7 % (42.0-52.0); HEMOGLOBIN 12.4 gm/dL (14.0-18.0); LYMPHOCYTES 17.3 % (24.0-44.0); MCH 28.9 pg (26.0-34.0); MCHC 33.7 g/dL (28.0-37.0); MCV 85.9 fL (80.0-100.0); PLATELET COUNT 99 thou/uL (150-400); POLYS 69.4 % (36.0-66.0); RBC 4.27 mil/uL (4.50-6.00); RDW 20.8 % (10.5-14.5)
[2020-05-01 18:36] LABS: ANION GAP 8 mmol/L (7-16); BUN 58 mg/dL (7-18); CALCIUM 7.9 mg/dL (8.5-10.1); CHLORIDE 99 mmol/L (98-107); CO2 26 mmol/L (21-32); CREATININE 2.2 mg/dL (0.7-1.3); GLUCOSE 188 mg/dL (74-106); POTASSIUM 4.5 mmol/L (3.5-5.1); SODIUM 133 mmol/L (136-145)
[2020-05-01 18:39] LABS: APTT 24.5 Seconds (24.5-32.8); INR 1.1; PROTIME 10.9 Seconds (9.3-11.4)
[2020-05-01 18:46] LABS: ALBUMIN 2.7 g/dL (3.4-5.0); MAGNESIUM 2.2 mg/dL (1.8-2.4); SGOT 21 U/L (15-37); SGPT 29 U/L (30-65); TOTAL BILIRUBIN 1.3 mg/dL (0.2-1.0); TOTAL PROTEIN 5.2 g/dL (6.4-8.2); TROPONIN-I <0.06 ng/mL (<0.06)
[2020-05-01 19:40] LABS: URINE BILIRUBIN NEGATIVE (Negative); URINE BLOOD NEGATIVE (Negative); URINE CLARITY CLEAR; URINE COLOR YELLOW; URINE GLUCOSE-RANDOM* NEGATIVE (Negative); URINE KETONES NEGATIVE (Negative); URINE LEUKOCYTES-REFLEX NEGATIVE (Negative); URINE NITRITE-REFLEX NEGATIVE (Negative); URINE PROTEIN (DIPSTICK) NEGATIVE (Negative); URINE SPECIFIC GRAVITY 1.015 (1.005-1.035); URINE UROBILINOGEN 0.2 E.U./dl (0.2-1.0)
[2020-05-01 19:55] LABS: AMP/METHAMP Negative (Negative); BARBITURATES Negative (Negative); BENZODIAZEPINES Negative (Negative); COCAINE Negative (Negative); METHADONE Negative (Negative); OPIATES POSITIVE (Negative); PCP Negative (Negative)
[2020-05-01 21:42] VITALS: BP 90/50
[2020-05-01 21:51] VITALS: BP 95/54
[2020-05-01 22:16] VITALS: BP 107/64
--- NOTE | 2020-05-02 02:48 | NUR ---
ADMITTED FROM ER UNDER DR. ROCHA'S CARE. VSS. AXOX4. ADMITTED WITH RECURRENT FALLS. NO S/S ACUTE DISTRESS NOTED OR REPORTED AT THIS TIME. WILL CONT TO MONITOR FOR ANY CHANGES IN CONDITION.
[2020-05-02 04:24] VITALS: BP 94/57
[2020-05-02 05:38] LABS: HEMATOCRIT 39.9 % (42.0-52.0); HEMOGLOBIN 12.9 gm/dL (14.0-18.0); MCH 28.6 pg (26.0-34.0); MCHC 32.4 g/dL (28.0-37.0); MCV 88.3 fL (80.0-100.0); RBC 4.52 mil/uL (4.50-6.00); RDW 21.6 % (10.5-14.5); WBC 6.9 thou/uL (4.0-11.0)
[2020-05-02 05:45] LABS: CALCIUM 7.8 mg/dL (8.5-10.1); CREATININE 1.9 mg/dL (0.7-1.3)
[2020-05-02 08:15] VITALS: BP 113/75
--- NOTE | 2020-05-02 13:48 | NUR ---
ASSUMED CARE AT 0700. ALERT AND ORIENTED. VSSA/RA. BP IMPROVING. ON TELE H/O CARDIAC PROBLEMS. VOIDING WELL. BM TODAY. TOLERATING DIET. BLOOD SUGARS MONITORED AND TREATED ORDERED. PIV FROM PREVIOUS INFILTRATED. ATTEMPTED X2, PAGED IV TEAM. FALL PRECAUTIONS IN PLACE, CALL LIGHT IN REACH. PT EDUCATED ON CALLING FOR ASSISTNACE NEEDED. WILL CONTINUE TO MONITOR
[2020-05-02 17:01] VITALS: BP 106/62
[2020-05-02 19:50] VITALS: BP 101/60
--- NOTE | 2020-05-03 02:27 | NUR ---
ASSUMED PT CARE AROUND 193. AXOX3. PLEASANT. NO S/S ACUTE DISTRESS NOTED OR REPORTED AT THIS TIME. WILL CONT TO MONITOR FOR ANY CHANGES IN CONDITION,
[2020-05-03 03:52] VITALS: BP 139/92
[2020-05-03 05:39] LABS: ALBUMIN 2.4 g/dL (3.4-5.0); CALCIUM 7.7 mg/dL (8.5-10.1); CREATININE 1.8 mg/dL (0.7-1.3); POTASSIUM 4.4 mmol/L (3.5-5.1)
[2020-05-03 07:35] VITALS: BP 139/100
--- NOTE | 2020-05-03 10:25 | NUR ---
ASSUMED CARE AT 0700. PT IS ALERT AND ORIENTED. VSSA/RA. ON TELE WITH H/O AFIB, PACEMAKER/DEFIB. IRREGULAR. COMPLAINS OF LEFT ELBOW SORENESS AND TINGLING. 2 OPEN AREAS PROM PREVIOUS FALLS NOTED, THEY ARE COVERED WITH A BORDER FOAM BANDAGE. NO DRAINAGE NOTED. APPLIED ICE TO SEE IF THAT WOULD HELP. WILL GIVE TYL PRN ORDERED. TOLERATING DIET, BLOOD SUGARS MONITORED. IVF INFUSING WITHOUT ISSUES. FALL PRECAUTIONS IN PLACE, BED ALARM ON AND CALL LIGHT IN REACH. EDUCATED TO CALL WHEN NEEDS ASSISTANCE. WILL CONTINUE TO MONITOR. PT CALLED AROUND 1030. SHE IS ASKING TO SPEAK WITH MD. AND WOULD LIKE TO HAVE PT EVALUATED FOR MEDICAL COMPETENCY. WILL TEXT PAGE AND NOTIFY. WILL CONITNUE TO MONITOR
[2020-05-03 11:00] VITALS: BP 135/82
[2020-05-03 16:00] VITALS: BP 151/91
[2020-05-03 20:02] VITALS: BP 168/94
[2020-05-04 00:41] VITALS: BP 154/100
--- NOTE | 2020-05-04 02:34 | NUR ---
PATIENT ALERT AND ORIENTED X4. UP WITH ONE ASSIST. VOIDING PER URINAL CLEAR YELLOW URINE. PATIENT C/O NOT BEING ABLE TO BREATHE. 02 SAT RANGES FROM 97-100% RT TREATMENTS PER ORDER. GIVEN ZOFRAN FOR RELAXATION PATIENT APPEARS ANXIOUS. CALMED AND ABLE TO SLEEP W/O SOA. MUST BE REMINDED TO SIT UP IN BED HE LIKES TO LAY DOWN ON HIS SIDE AND C/O BREATHING ISSUES. WILL MONITOR.
[2020-05-04 04:17] VITALS: BP 168/104
[2020-05-04 05:20] LABS: BE(vivo) -6.1 mmol/L (-2 to +3); HCO3 16.5 mmol/L (22.0-26.0); PO2 68.6 mmHg (80.0-100.0); pH 7.421 (7.360-7.450); sO2 94.4 % (92.0-98.0)
[2020-05-04 05:33] LABS: HEMATOCRIT 42.5 % (42.0-52.0); HEMOGLOBIN 13.9 gm/dL (14.0-18.0); MCH 28.6 pg (26.0-34.0); MCHC 32.7 g/dL (28.0-37.0); MCV 87.4 fL (80.0-100.0); RBC 4.86 mil/uL (4.50-6.00); RDW 21.6 % (10.5-14.5); WBC 11.4 thou/uL (4.0-11.0)
[2020-05-04 05:45] LABS: CALCIUM 8.3 mg/dL (8.5-10.1); CREATININE 1.4 mg/dL (0.7-1.3); POTASSIUM 4.6 mmol/L (3.5-5.1)
--- NOTE | 2020-05-04 05:50 | NUR ---
FINAL ASSEMBLER BOAT ACTIVATED FOR RESP DISTRESS, PT STATING HE CAN'T BREATHE. O2 SAT UPPER 90S ON 1L ON ARRIVAL TO UNIT. PT USING ACCESSORY MUSCLES AND TACHYPNIC. RN HAD ALREADY TALKED TO BOILER HOUSE INSPECTOR WITH ORDERS RECEIVED. COVID SWAB ORDERED YESTERDAY AND PENDING. PT MOVED TO COVID UNIT TO AWAIT PENDING SWAB. LEVEL OF CARE NOT CHANGED. SEE RAPID RESPONSE DOCUMENTATION FOR FUTHER DETAILS.
--- NOTE | 2020-05-04 06:22 | NUR ---
PATIENT C/O NOT BEING ABLE TO BREATHE. THIS NURSE CONTACTED CORNELIO WATERMAN AND THE TRACTOR EXPERT TEAM WAS NOTIFIED. ALSO CALLED AND RECEIVED ORDERS FROM [facility] (HOME). PATIENT HAD A SANTAMARIA TEST DONE 05/03 WHICH IS STILL ACTIVE AND ANOTHER WAS ORDERED FOR RULE OUT. TRANSFERRED PATIENT TO [facility] ROOM 353 TO NURSE GATES AT 0610. REPORT WAS GIVEN BY THIS NURSE. ALL NEW MEDS GIVEN EXCEPT LORAZEPAM BEFORE TRANSFER. PATIENT WAS CALM UPON TRANSFER AND PUT ON 3LNC UPON ARRIVAL.
--- NOTE | 2020-05-04 07:41 | EKG ---
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: TAIWO : 1940 Requested By: Cody Lou Order Number: [id number] MD: Joel Dunn Measurements Intervals [place] Rate: 76 P: [place]: QRS: -28 QRSD: 119 T: 145 QT: 385 QTc: 433 Interpretive Statements Atrial fibrillation Inferior infarct, old T wave abnormality, consider lateral ischemia Compared to ECG 04/16/2020 08:38:05 Ventricular premature complex(es) no longer present Electronically Signed On 05-04-2020 7:41:16 CDT by Joel Dunn [email or web address] <ELECTRONICALLY SIGNED> By: Joel Dunn MD, [facility] 05/04/20 0741 1749 1749 Joel Dunn MD, [facility] /EPI
[2020-05-04 08:01] VITALS: BP 172/112
--- NOTE | 2020-05-04 09:15 | EKG ---
[facility] [place] [address] ELECTROCARDIOGRAM REPORT Name: CHERISE SERRANO Room #: 353-P ADM IN M.R.#: [id number] Admission: 05/01/20 Attend Phys: Joselyn Su Discharge: Date of : 41 Report #: [id number] THIS REPORT FOR: cc: TONY - Brittany family physician/PCP TONY - Brittany family physician/PCP Joel Dunn MD [facility] THIS REPORT FOR: //name// [facility] Test Date: 2020-05-04 Test Time: 05:18:01 Pat Name: CHERISE SERRANO Department: Room: [facility] Gender: M 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: [place] : 1940 Requested By: Claribel Thorpe Order Number: [id number] MD: Joel Dunn Measurements Intervals [place] Rate: 102 P: [place]: QRS: 43 QRSD: 104 T: 140 QT: 342 QTc: 446 Interpretive Statements Atrial fibrillation with occasional premature ventricular complexes Low voltage, extremity leads Nonspecific repol abnormality, diffuse leads Baseline wander in lead(s) V6 Compared to ECG 05/01/2020 17:49:11 Inferior Q waves are less pronounced Electronically Signed On 05-04-2020 9:15:40 CDT by Joel Dunn [email or web address] <ELECTRONICALLY SIGNED> By: Joel Dunn MD, [facility] 05/04/2015 7 7 Joel Dunn MD, FAC /EPI
[2020-05-04 11:23] VITALS: BP 168/104
--- NOTE | 2020-05-04 12:25 | NUR ---
ASSUMED CARE OF PT AT 0700, PT ASSESSED ABOUT 0745, BP HIGH, GAVE AM MEDS, PT ON 3L O2 VIA NC, PT ALERT AND ORIENTED X 4, SKIN BRUISED, SOME SKIN TEARS ON ARMS AND RIGHT KNEE, ALL COVERED, REVIEWED POC WITH PT AND TOLD HIM IT'S IMPERATIVE TO CALL AND ASK FOR HELP WHEN HE NEEDS TO URINATE, DR ROCHA IN TO SEE PT, SPOKE WITH PT'S AND SISTER ON THE PHONE TO GIVE UPDATES. WILL MONITOR
[2020-05-04 14:12] VITALS: BP 145/102
--- NOTE | 2020-05-04 14:31 | NUR ---
PT ARRIVED AT 1350 FROM 3W. ORIENTED TO PERSON ONLY, LETHARGIC/SLEEPY. CONFUSED AND IMPULSIVE. DENIES PAIN AT THIS TIME. VITALS DBP ELEVATED 104. ALL OTHER VITALS ARE STABLE. PT REFUSED BOTH BREAKFAST AND LUNCH PER REPORT, WILL KEEP ENCOURAGING PT WHEN AWAKE. SKIN TEARS ON LEFT FOREARM REMAIN INTACT, DRESSINGS CHANGED PRIOR TO TRANSFER. RIGHT KNEE CLEANED AND DRESSING CHANGED. PT REPOSITIONED Q2H. FREQ. VISUAL CHECKS. CALL LIGHT WITHIN REACH. FALL PRECAUTIONS IN PLACE
--- NOTE | 2020-05-04 14:35 | NUR ---
PT ADMITTED RELATED TO FALLS. CM REVIEWED CHART AND SPOKE WITH CARE TEAM. PT JUST RETURNED TO 4W FROM 3W [facility] RULE OUT UNIT THIS AFTERNOON. CM CALLED AND SPOKE WITH PT'S SPOUSE RAUL WHO IS IN [place]. SHE INIDCATED THAT THEY HAVE TWO HOUSES AND SHARE TIME AT BOTH. SHE INDICATED THAT PT HAD BEEN AT HOME HERE ALONE WITH 3 STEPS TO ENTER AND 12 STEPS TO BASEMENT WITH NO HANDRAILS. SHE INIDCATED THAT PT HAS A CANE AND A FWW FOR USE AT HOME BUT THAT HE ONLY USES THE CANE. PT HAD BEEN HOSPITALIZED HERE 04/14-04/24. THERE HAD BEEN ORDERS FOR HH SERVICES UPON DC LAST TIME BUT SPOUSE INDICATED NONE EVER CAME. PT IS ON 4L O2 AND HADN'T BEEN ON O2 CONVEYOR WEIGHER OPERATOR. RAUL INDICATED SHE FEELS PT NEEDS REHAB. SHE EXPRESSED INTEREST IN 5N ASSESSING PT FOR POSSIBLE ADMISSION. SHE INDICATED THAT SHE DOESN'T THINK HIGHLY OF SKILLED FACILITIES IN [place]. CM EMAILED SNF LIST IF 5N ISN'T APPROPRIATE. CM TO FOLLOW INDICATED [facility] DC PLANNING.
--- NOTE | 2020-05-04 16:18 | NUR ---
INITIAL ASSESSMENT: Received consult. JEREMIAS reviewed chart and spoke with nursing and attending physician. Pt was admitted from home due to weakness/history of falls. Pt was transferred to 3W after VIRTUAL CLASSROOM MANAGER activation. Pt placed in Enhanced Isolation to r/o COVID-19. Pt's test is negative. Pt currently on 3L of continuous O2. Pulmonary consulted. SW attempted to reach pt in his room. No answer. JEREMIAS spoke with pt's , Shefali, via phone. Introduced role of SW. Pt is normally alert/orientated x 4. Pt lives at home alone. Pt's is currently staying in their home in [place]. Pt has become more weak over the past several weeks. Pt has a cane and walker. Pt was recently discharged home on 04/24 with Bernadette . Per pt's , has not started seeing pt. Pt's is interested in pt going to rehab when ready for discharge. PT/OT has been ordered to evaluate pt for discharge needs. Pt's would prefer pt go to 5N, so he will not have to go to an outside facility. JEREMIAS contacted attending physician for 5N consult. JEREMIAS notified N industrial rehabilitation consultant of new consult. JEREMIAS spoke with Cecilia in intake at who states pt had not been seen yet by . Pt's PCP is Dr. Fredrick Borja. Awaiting input from therapy and . JEREMIAS is following to assist as needed with discharge planning.
[2020-05-04 17:06] VITALS: BP 122/91
--- NOTE | 2020-05-05 05:07 | NUR ---
patient admitted for frequent falls. patient denied soa this shift. fall precaution in place. patient in bed asleep at this time breathing regular and unlaboured.
[2020-05-05 06:21] LABS: ALBUMIN 2.4 g/dL (3.4-5.0); CALCIUM 8.2 mg/dL (8.5-10.1); CREATININE 1.5 mg/dL (0.7-1.3); PHOSPHORUS 2.9 mg/dL (2.5-4.9); POTASSIUM 4.5 mmol/L (3.5-5.1)
[2020-05-05 07:33] VITALS: BP 136/77
[2020-05-05] MEDS ORDERED: LEVAQUIN 500 M500 M2 PO (09:06)
[2020-05-05] MEDS ORDERED: PREDNISONE 5 MG5 M1 PO (09:07)
--- NOTE | 2020-05-05 11:41 | NUR ---
ASSUMED CARE AT 0700. PT IS ALERT AND ORIENTED. NO COMPLAINTS. VSSA/2L O2. H/O CARDIAC ISSUES, PACEMAKER/DEFIB. TOLERATING DIET. BLOOD SUGARS MONITORED. PIV WITHOUT ISSUES. PT/OT WORKING WITH HIM. SBA TO BATHROOM. FALL PRECAUTIONS IN PLACE. EDUCATION PROVIDED. BED ALARM ON. CALL LIGHT IN REACH. WILL MONITOR PT CALLED AT 1130. UPDATE GIVEN. PT TO DC TO ACUTE REHAB TODAY.
--- NOTE | 2020-05-05 11:55 | NUR ---
5N ASSESSED AND INDICATED THAT PT IS APPROPRIATE FOR ADMISSION THIS DAY. CARE TEAM INDICATED HE IS MEDICALLY STABLE TO DC. CM NOTIFIED PT'S SPOUSE SHE IS AWARE AND AGREEABLE. SHE INDICATED THAT SHE PLANS TO COME INTO TOWN THIS WEEKEND AND ANTICIPATES VISITINF PT ON 5N. NO OTHER CM INTERVENTION INDICATED AT THIS TIME. REPORT CALLED TO . CASE CLOSED.
[2020-05-05 14:43] VITALS: BP 139/80
--- NOTE | 2020-05-05 15:01 | NUR ---
PT HAS BEEN ACCEPTED TO 5N ACUTE INPATIENT REHAB THIS DAY. PT IS AWARE AND AGREEABLE. CM CALLED AND NOTIFIED PT'S SPOUSE RAUL WHO IS ALSO AWARE AND AGREEABLE. SHE INDICATED THAT SHE PLANS TO VISIT HER THIS WEEKEND. THEIR FTR IN [place] JUST HAD PRADEEP SURGERY. PT HAD A REFERRAL SENT TO [facility] UPON LAST DC HOME THEY HADN'T YET STARTED CARE PRIOR TO ADMISSION. PLAN IS FOR PT TO RETURN HOME ONCE MEDICALLY STABLE. CM PROVIDED 5N CM NUMBER TO SPOUSE. NO OTHER CM INTERVENTION INDICATED. CASE CLOSED.
== END 2020-05-05 15:30 | DRG 177 ==
LOC: ER 17:06 → EROBS 20:44 → 4W 20:44 → 3W 20:44 → 4W 21:57 → 3W 05-04 06:26 → 4W 05-04 13:49
PROVIDERS: Emergency Medicine; Nurse Practitioner Family; ADMIT Hospitalist; ATTEND Hospitalist
DX: J69.0 Pneumonitis due to inhalation of food and vomit (principal); E43 Unspecified severe protein-calorie malnutrition; N17.0 Acute kidney failure with tubular necrosis; J96.01 Acute respiratory failure with hypoxia; I48.20 Chronic atrial fibrillation, unspecified; I48.21 Permanent atrial fibrillation; J44.1 Chronic obstructive pulmonary disease with (acute) exacerbation; I95.9 Hypotension, unspecified; S09.90XA Unspecified injury of head, initial encounter; G89.29 Other chronic pain; M54.9 Dorsalgia, unspecified; N18.9 Chronic kidney disease, unspecified; E11.22 Type 2 diabetes mellitus with diabetic chronic kidney disease; I12.9 Hypertensive chronic kidney disease with stage 1 through stage 4 chronic kidney disease, or unspecified chronic kidney disease; E11.42 Type 2 diabetes mellitus with diabetic polyneuropathy; Z20.828 Contact with and (suspected) exposure to other viral communicable diseases; Z79.01 Long term (current) use of anticoagulants; Z95.0 Presence of cardiac pacemaker; Z95.5 Presence of coronary angioplasty implant and graft; I25.2 Old myocardial infarction; Z90.49 Acquired absence of other specified parts of digestive tract; Z88.8 Allergy status to other drugs, medicaments and biological substances; Z87.891 Personal history of nicotine dependence; Z79.82 Long term (current) use of aspirin; Z79.899 Other long term (current) drug therapy; Z68.28 Body mass index [BMI] 28.0-28.9, adult; W18.39XA Other fall on same level, initial encounter; Y93.89 Activity, other specified; Y92.89 Other specified places as the place of occurrence of the external cause; Y99.8 Other external cause status
CPT/HCPCS: 10040; 10047

== ENCOUNTER 2020-05-05 10:56 | Inpatient (IN) | payer OTHER, BC ==
[~2020-05-05] VITALS: Ht 180.3 cm; Wt 94.3 kg
--- NOTE | ~2020-05-05 | HC ---
[facility] [address] [place] [address] CONSULTATION Name: CHERISE SERRANO Room #: 503-P ADM IN M.R.#: [id number] Admission: 05/05/20 Attend Phys: Eric Cortez MD Discharge: Date of : 42 Report #: [id number] THIS REPORT FOR: cc: TONY Soto family physician/PCP TONY - Brittany family physician/PCP Franko Garcia PhD ~ CC: Eric JIMENEZ physician/PCP DATE OF SERVICE: 05/09/2020 NEUROBEHAVIORAL STATUS EXAM ATTENDING PHYSICIAN: Eric Cortez MD SENIOR MAINFRAME PROGRAMMER ANALYST: Franko Garcia, PhD CLINICAL PRESENTATION: The patient is a 79-year-old white male admitted to the [facility] Rehabilitation Unit for a comprehensive inpatient rehabilitation program. He has had multiple falls over the last couple of weeks. Prior to admission, he was noted to have approximately 20+ falls including the day of admission. His medical history includes atrial fibrillation, on long-term anticoagulation, history of CA, coronary artery disease with cardiac stents, diabetes mellitus type 2, shingles, hypertension, hyperlipidemia, chronic back pain, COPD, peripheral neuropathy and postherpetic neuralgia. His assessment on admission to the rehab unit is multifactorial gait instability, multiple falls, hypotension with periods of hypertension, acute renal insufficiency superimposed on chronic kidney disease, respiratory insufficiency, history of chronic obstructive pulmonary disease with recent exacerbation, peripheral neuropathy, diabetes mellitus type 2 and past tobacco abuse. A complete description of his medical condition and history can be found in his medical record. Neuropsychological consultation was requested to provide assistance in the assessment of cognitive and emotional status and provide recommendations and services. Prior to this most recent admission, he was living independently in his own home. The patient is , but currently from his who is living in [place]. His plan is to move to [place], but he is currently in their home here getting it prepared for sale. He has 2 children. The patient is retired from work for the [employer]. He is a high school graduate. 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 TECHNIQUES UTILIZED: Clinical interview, review of medical records, staff consultation and behavioral observation, mini mental status exam 2 standard [facility] [address] [place] [address] CONSULTATION Name: CHERISE SERRANO Room #: 503-P [facility] IN M.R.#: [id number] Admission: 05/05/20 Attend Phys: Eric Cortez MD Discharge: Date of : 41 Report #: [id number] version, clock drawing and verbal fluency assessment (letter and category). EXAMINATION FINDINGS: The patient was alert and cooperative with the assessment. He accurately described the reason for his hospitalization. There is no evidence of aphasia. His thoughts are logical and goal oriented. There is no evidence of thought disorder. He does not report auditory or visual hallucinations. He describes his symptoms to include sleep disturbance, subjective anxiety and difficulty with memory. He is reported to have been independent with instrumental activities of daily living prior to his fall. The patient does not report difficulty with appetite or feelings of depression. The patient did report having hit his head twice from falls, suggesting possible concussion. His performance on the mini mental status exam 2 brief version is within normal limits with a raw score of 15/16. He is alert and oriented. He was 2/3 for immediate recall of 3 items after a brief time delay and distraction. Performance on the MMSE 2 standard version is within normal limits with a raw score of 27/30. He was 3/5 for serial 7's. ____ within normal limits for naming, repetition, comprehension, reading, writing and being able to draw and copy a simple geometric design. Clock drawings within normal limits. The patient is showing impaired performance in letter fluency with a raw score of 11 and a T score 34, which is at the 5th percentile. Category fluency was a T score of 41, which is at the 18th percentile. Overall, verbal fluency was in the borderline range with a T score of 36 and percentile rank of 8. The patient is presenting with mild deficits in verbal fluency, which often suggest executive dysfunction. Elevations suggesting mild anxiety is also likely. DIAGNOSTIC IMPRESSION: 1. Mild neurocognitive disorder, unspecified, without behavior disorder. 2. Unspecified anxiety disorder. RECOMMENDATIONS: Continued speech therapy will be of benefit to focus on executive functioning including planning and problem solving. Relaxation strategies along with reassurance will also assist in management of anxiety. The patient may have had a concussion from his recent falls. There is no reported loss of consciousness. A more thorough evaluation for monitoring driving is recommended as he reports having been independent with instrumental activities of daily living. [facility] [address] [place] [address] CONSULTATION Name: CHERISE SERRANO Room #: 503-P [facility] IN M.R.#: [id number] Admission: 05/05/20 Attend Phys: Eric Cortez MD Discharge: Date of : 41 Report #: [id number] Thank you very much for allowing me to provide the consultation on this patient. By: [id number] Franko Garcia, PhD /nt
--- NOTE | ~2020-05-05 | PLAN ---
[facility] [address] [place] [address] REHAB UNIT PLAN OF CARE Name: CHERISE SERRANO Room #: 503-P ADM IN M.R.#: [id number] Admission: 05/05/20 Attend Phys: Eric Cortez MD Discharge: Date of : 41 Report #: [id number] THIS REPORT FOR: //name// CC: Eric JIMENEZ physician/PCP DATE OF SERVICE: 05/06/2020 PROGRESS NOTE/OVERALL PLAN OF CARE SUBJECTIVE The patient was seen on 05/06/2020 in followup. He was in no distress. Temperature was noted to be afebrile, vital signs were stable. He was pleasant, cooperative. No calf swelling. Transfers have been standby assistance, gait 150 feet contact guard with a standard cane. He is going up and down 12 steps min assist. In occupational therapy, lower body dressing is min assist. He is being seen by speech therapy. He was noted to have [id number] cognitive deficits with moderate to severe memory deficits. ASSESSMENT: 1. Multifactorial gait instability. 2. Medical clearance. 3. hypertension. 4. Acute renal insufficiency superimposed on chronic kidney disease. 5. Respiratory insufficiency, was treated with IV Solu-Medrol. 6. History of COPD with recent exacerbation. 7. Peripheral neuropathy. 8. Diabetes mellitus type 2. 9. Past tobacco. PLAN: The overall plan of care is based on the preadmission screen, post-admission physician evaluation and information garnered from therapy assessments. 1. Estimated length of stay is probably at least 5-10 days. 2. Medical prognosis is reasonably good. 3. Anticipated interventions includes the interdisciplinary acute inpatient rehabilitation program. 4. Anticipated functional outcomes would be for the patient to become modified independent with mobility, ADLs, gait and cognition, so he can return back to the home setting and not have problems with frequent falls he was having before. 5. Discharge destination will be back to the home setting. He does live alone, but has involved family support. 6. Expected therapy by discipline includes PT, OT and speech 1 hour per day [address] [address] REHAB UNIT PLAN OF CARE Name: CHERISE SERRAON Room #: 503-P ADM IN M.R.#: [id number] Admission: 05/05/20 Attend Phys: Eric Cortez MD Discharge: Date of : 41 Report #: [id number] each five days a week throughout the duration of the acute inpatient rehabilitation stay. By: [id number] Eric Cortez MD /PMT
[~2020-05-05 10:56] MED LIST changes: +LEVAQUIN 500 M500 M2 PO; +PREDNISONE 5 MG5 M1 PO
[2020-05-05 15:30] VITALS: BP 150/90
--- NOTE | 2020-05-05 16:06 | NUR ---
1530 ADMITTED TO ROOM 503. PATIENT IS ALERT AND ORIENTED X4. PATIENT NOBLE'S, NEWS VIDEOGRAPHER ARE EQUAL BILATERALLY. LUNGS ARE DEMINISHED. PATIENTT CONTINUES ON RESPIRATORY TX. AND 02 AT 2L PER N/C. PATIENT HAS PACEMAKER WITH DEFIBULATOR. ABD IS SOFT WITH BSX4. PATIENT VOIDS ELODIA COLORED URINE PER URINAL. FALL AND SAFETY PROTOCOLS IN PLACE. DENIES PAIN AT THIS TIME. WILL GET EVALS FOR PT/OT/ST IN A.M. CALL LIGHT IN REACH. WILL CONTINUE TO MONITER
[2020-05-05 19:40] VITALS: BP 141/99
--- NOTE | 2020-05-06 01:58 | NUR ---
assumed care at approx 1900 evening 05/05. pt alert and oriented x4, pleasant and cooperative. 02 at 2l per n/c. pt took hs meds with water tolerating well. pt voiding per urinal. pt appears to be sleeping soundly with hourly rounding checks. bed alarm on and call light in reach. will continue to monitor.
[2020-05-06 05:44] LABS: HEMATOCRIT 39.7 % (42.0-52.0); HEMOGLOBIN 12.8 gm/dL (14.0-18.0); MCH 28.6 pg (26.0-34.0); MCHC 32.2 g/dL (28.0-37.0); MCV 88.9 fL (80.0-100.0); RBC 4.47 mil/uL (4.50-6.00); RDW 21.1 % (10.5-14.5); WBC 8.9 thou/uL (4.0-11.0)
[2020-05-06 06:11] LABS: CALCIUM 8.5 mg/dL (8.5-10.1); CREATININE 1.8 mg/dL (0.7-1.3); POTASSIUM 4.9 mmol/L (3.5-5.1)
[2020-05-06 07:56] VITALS: BP 126/64
--- NOTE | 2020-05-06 13:27 | NUR ---
Nutrition: pt admitted with multifactorial gait instability with multiple falls to rehab unit. Received consult related to diet order. Pt on mechanical soft, Carb controlled diet. ST following for modified diet need. BG 237-310. Hx DM further aggravated by steroids. SSI, glyburide, prednisone. A1C 7.0. Pt eating very well, 100% of meals. Weights up 17# from admit 3 weeks ago. Unsure of accuracy. Will follow trends. Pt voices no questions regarding current diet order-he is not too happy about the [facility] soft restrictions. Alerted him of alternative menu items he could order. Low nutrition risk.
--- NOTE | 2020-05-06 15:38 | NUR ---
ASSUMED CARE AT 0700. PATIENT IS ALERT AND ORIENTED X4. PATIENT NOBLE'S, CRANE LADLE PERSON ARE EQUAL. LUNGS ARE DEMINISHED. CONTINUES ON 02 AT 2L PER N/C. PATIENT CONTINUES ON RESPIRATORY TX. ABD IS SOFT WITH BSX4. VOIDNG ABMER COLORED URINE PER URINAL. UP WITH ASSIST OF 1 STAFF AND GAIT BELT TO W/C. UP IN THE RECLINER FOR MEALS. PATIENT HAS S.L. IN HIS LEFT FORARM. FALL AND SAFETY PROTOCOLS IN PLACE. DENIES PAIN. CONTINUES TO PROGRESS TOWARDS D/C GOALS. WILL CONTINUE TO MONITER. .
[2020-05-06 16:30] VITALS: BP 120/87
[2020-05-06 19:32] VITALS: BP 137/90
--- NOTE | 2020-05-07 00:14 | NUR ---
Assumed care on 05/06/20 @ 19:15, in bed eyes closed respiration even and unlabored. Cooperates with assessment and medication. HRRR, Lungs CTA, ABD N x 4 Q Reports BM today. Takes meds whole with thin water. Acucheck 260, Insulin Lispro 12 U provided. IV d/c and coban wrapped. Visualized tip of canula. A&O x 4.
[2020-05-07 08:47] VITALS: BP 130/80
--- NOTE | 2020-05-07 09:28 | NUR ---
chart review. pt out of room for with therapy. per chart pt lives alone, 3 steps into home, 12 steps inside home. pt has reported fall at home. have cane and walker. manage own medication at home. will cont following as needed for dc need.
--- NOTE | 2020-05-07 15:30 | NUR ---
pt elizabeth call cm via phone call, she wanted to know how long he would be in rehab and how he was doing with therapy. " keeping him for longest time would be best like"/elizabeth [phone]. education that have to see how doing with therapy and then have tue weekly meeting before set dc date " longest the better please"/elizabeth.
--- NOTE | 2020-05-07 19:30 | NUR ---
ASSUMED CARE AT 0700. PATIENT IS ALERT AND ORIENTED X4. REPORTS DIDN'T SLEEP WELL LAST NIGHT. NOTIFIED ALTON AND OBTAINED ORDER FOR MELATONIN FOR TONIGHT. REASSESSMENT PER CHART. LAST BM WAS 2 DAYS AGO. DENIES CONSTIPATION. LUNGS ARE DEMINISHED. SAT 99% ON RA. PATIENT CONTINUES ON RESPIRATORY TX. ABD IS SOFT WITH BSX4. VOIDING YELLO COLORED URINE PER URINAL. UP WITH ASSIST OF 1 STAFF AND GAIT BELT TO W/C. UP IN THE RECLINER FOR MEALS. PATIENT HAS S.L. REMOVED ON LEFT FOREARM. FALL AND SAFETY PROTOCOLS IN PLACE. DENIES PAIN. UP AND PARTICIPATED WITH THERAPY TODAY AND CONTINUES TO PROGRESS TOWARDS D/C GOALS. OFFERED SUPPORTIVE CARE. BS MONITOR, INSULIN AND MEDS GIVEN ORDERED. GAVE REPORT TO NIGHT NURSE TO CONTINUE TO MONITOR.
[2020-05-07 19:53] VITALS: BP 138/81
--- NOTE | 2020-05-08 05:37 | NUR ---
05-07-20 CARE TRANSFERED 190O PT LYING IN BED WITH EYES OPEN. 2030 PT SUPINE IN BED WITH EYES OPEN. PT AAOX4, SKIN W/D, VSS; RR EVEN AND NONLABORED ON RA. PT DENIES ANY NEW CONCERNS AT THIS TIME. DURING MEDICATION ADMIN PT HAD ZERO DIFFICUTIES. LATER DURING NURSING ROUNDS NOTED PT RESTING WITH EYES CLOSED AND ZERO ACUTE DISTRESS NOTED. WILL CONTINUE TO MONITOR PER PROTOCOL.
[2020-05-08 08:57] VITALS: BP 146/88
--- NOTE | 2020-05-08 11:46 | NUR ---
chart review, cm spoke with ot today. noted he is up with physical therapy walking and supervision with some adl's. elizabeth wanted update, cm visit with her via phone call. education that would anticipated setting a date after team on mon " please pretty please push for later in week, like monday, i am in [place] with daughter who had major surgery, will i know him will, you can tell him to take medication or tell him were frozen food is but he wont do it. push for longest time that will help me out"/ elizabeth. information passed on to team.
--- NOTE | 2020-05-08 12:32 | NUR ---
ASSUMED CARE AT 0700. PATIENT IS ALERT AND ORIENTED X4. REPORTS SLEEP LITTLE BIT BETTER, WILL CONTINUE TO TAKE MELATONIN TONIGHT. REASSESSMENT PER CHART. HAS HX OF ASPIRATION PNEUMONIA, CONTINUE TO BE ON LEVAQUIN WITHOUT ADVERSE REACTION NOTED. LUNGS ARE BETTER SAT 99% ON RA. PATIENT CONTINUES ON RESPIRATORY TX. ABD IS SOFT WITH BSX4. CONTINUE TO BE ON MIRALAX DAILY, HAD GOOD BM TODAY. VOIDING YELLO COLORED URINE PER URINAL. UP WITH ASSIST OF 1 STAFF AND GAIT BELT BETTER, BUT STILL WEAK AT TIME. FALL AND SAFETY PROTOCOLS IN PLACE. DENIES PAIN. UP AND PARTICIPATED WITH THERAPY TODAY AND CONTINUES TO PROGRESS TOWARDS D/C GOALS. OFFERED SUPPORTIVE CARE. BS MONITOR, INSULIN AND MEDS GIVEN ORDERED. HAS NO QUESTION OR CONCERN AT THIS MOMENT. SKIN INTACT AT THIS MOMENT. JUST HAD OLD SCABB ON LEFT ELBOW AND RIGHT KNEE FROM PRIOR FALL. NO TREATMENT NEED AT THIS MOMENT. WILL CONTINUE TO MONITOR.
[2020-05-08 19:35] VITALS: BP 137/74
[2020-05-09 05:42] LABS: ABSOLUTE NEUTROPHILS 5.6 thou/uL (1.4-8.2); BASOPHILS 0.5 % (0.0-2.0); EOSINOPHILS 3.8 % (0.0-3.0); HEMATOCRIT 38.5 % (42.0-52.0); HEMOGLOBIN 12.7 gm/dL (14.0-18.0); MCH 28.9 pg (26.0-34.0); MCV 87.4 fL (80.0-100.0); MONOCYTES 9.9 % (1.0-8.0); PLATELET COUNT 181 thou/uL (150-400); POLYS 67.8 % (36.0-66.0); RBC 4.41 mil/uL (4.50-6.00); RDW 21.4 % (10.5-14.5); WBC 8.2 thou/uL (4.0-11.0)
--- NOTE | 2020-05-09 05:44 | NUR ---
ASSUMED CARE OF PT AT 1900HRS. PT AOX4 AND LETS NEEDS BE KNOWN. FALL PRECAUTION IN PLACE. ASSESSMENT CHARTED. PT WAS ABLE TO GE COMFORTABLE AND SLEEP PART OF THE SHIFT. VSS AND NO S/S OF ACUTE DISTRESS. WILL CONTINUE TO MONITOR.
[2020-05-09 06:07] LABS: CALCIUM 8.6 mg/dL (8.5-10.1); CREATININE 1.3 mg/dL (0.7-1.3); MAGNESIUM 1.9 mg/dL (1.8-2.4); POTASSIUM 4.3 mmol/L (3.5-5.1)
[2020-05-09 07:20] VITALS: BP 138/88
--- NOTE | 2020-05-09 09:00 | NUR ---
Assumed care 0700. A & O x3. No c/o pain. Self fed breakfast. Good mood.
[2020-05-09 20:01] VITALS: BP 121/71
--- NOTE | 2020-05-10 03:10 | NUR ---
PLEASANT, USING URINAL, STATES BM 05/08. MIRALAX IN ORANGE JUICE AFTER 8 UNITS INSULIN GIVEN FOR BLOOD SUGAR OF 177. HARD OF HEARING BUT COMMUNICATES WELL, PEANUT BUTTER BY REQUEST AT THIS NIGHT.
[2020-05-10 07:15] VITALS: BP 146/93
--- NOTE | 2020-05-10 16:05 | NUR ---
PATIENT RESTED IN ROOM FOR THE DAY. CALLS FOR ASSIST NEEDED. USING URINAL AT BEDSIDE. FALL PRECAUTIONS IN PLACE. SISTER VISITED WITH PATIENT FOR AWHILE THIS SHIFT.
[2020-05-10 19:30] VITALS: BP 123/81
--- NOTE | 2020-05-11 02:52 | NUR ---
PT LYING IN BED. VOIDING PER URINAL. DENIES PAIN. RESTING COMFORTABLY. NO NEEDS VOICED. CALL LIGHT WITHIN REACH. FREQUENT OBSERVATION.
[2020-05-11 07:10] VITALS: BP 145/91
--- NOTE | 2020-05-11 09:55 | NUR ---
ASSUMED CARE AT 0700. PATIENT IS ALERT AND ORIENTED X4. PATIENT NOBLE'S, CARBON BRUSH MAKER ARE EQUAL. LUNGS ARE CLEAR AND DEMINISHED. ABD IS SOFT WITH BSX4. VOIDING ELODIA COLORED URINE PER URINAL. FALL AND SAFETY PROTOCOLS IN PLACE. DENIES PAIN AT THIS TIME. CONTINUES TO PROGRESS SLOWLY TOWARDS D/C GOALS. WILL CONTINUE TO MONITER.
[2020-05-11 19:08] VITALS: BP 96/53
--- NOTE | 2020-05-12 02:25 | NUR ---
MIRALAX IN ORANGE JUICE AFTER HS INSULIN. RESTING WELL TONIGHT WITH NO C/O PAIN. TRAZADONE INITIATED TONIGHT AT HS. USING URINAL.
[2020-05-12 08:52] VITALS: BP 150/94
--- NOTE | 2020-05-12 11:17 | NUR ---
ASSUMED CARE AT 0700.REPORTS DIDN'T SLEEP WELL, EVEN HAD MELATONIN AND 50MG TRAZODONE LAST NIGHT. ALTON INCREASE TRAZODONE TO 100MG TONGHT. PATIENT IS ALERT AND ORIENTED X4. PATIENT NOBLE'S, BANKING SERVICES ADVISOR ARE EQUAL. LUNGS ARE CLEAR AND DEMINISHED. ABD IS SOFT WITH BSX4. VOIDING ELODIA COLORED URINE PER URINAL. HAD BM THIS AM. OFFERED SUPPORTIVE CARE. ENCOURAGED PT TO VOICE HIS NEEDS. BS 131. INSULIN AND MEDS GIVEN. PT WILL BE DISCHARGE TOMORROW. PT REFERS TO LEAVE ON MONDAY OR MONDAY. WILL DISCUSS AT TEAM CONFERENCE. FALL AND SAFETY PROTOCOLS IN PLACE. DENIES PAIN AT THIS TIME. CONTINUES TO PROGRESS TOWARDS D/C GOALS. HE SAID HE FEELS STRONGER EACH DAY. WILL CONTINUE TO MONITOR.
--- NOTE | 2020-05-12 11:41 | NUR ---
Nutrition followup: [facility]. Continues to eat 100% of most meals. BG 131-196, significantly improved with D/C of steroids. On SSI, glipizide, vitamin D. No weight loss, recent weights running significantly higher than prior weights. No edema. Low nutrition risk.
--- NOTE | 2020-05-12 12:59 | NUR ---
team meeting, recommendation: independent in room with or with out cane. dc 23 hh ( pt, ot, st and nursing). no driving, needs to follow up with pcp. and family to assist with pills and bills.
--- NOTE | 2020-05-12 14:28 | H ---
[facility] [address] [place] [address] HISTORY AND PHYSICAL Name: CHERISE SERRANO Room #: 503-P ADM IN M.R.#: [id number] Admission: 05/05/20 Attend Phys: Eric Cortez MD Discharge: Date of : 41 Report #: [id number] THIS REPORT FOR: cc: TONY - No family physician/PCP TONY - No family physician/PCP Eric Cortez MD ~ CC: Eric JIMENEZ physician/PCP DATE OF SERVICE: 05/05/2020 HISTORY AND PHYSICAL AND POST-ADMISSION PHYSICAL EVALUATION HISTORY OF PRESENT ILLNESS: The patient is a 79-year-old white male who was having problems with multiple falls over the last couple of weeks prior to his acute hospitalization. In a couple of days prior to his original admission 05/01/2020 to [facility], he was noted to have approximately 20+ falls including the day of admission. He was noted to have atrial fibrillation and has been on longstanding anticoagulation. He is supposed to use a walker at home because of his balance problems, but at home, he was noted it was not fit for a walker, so he often does not use it. He uses a cane. He did apparently hit his head approximately [address] of the head was negative. He was diagnosed with some mild hypotension and given a liter of fluid. He was noted to have acute renal insufficiency superimposed on chronic kidney disease. He had some complaints of shortness of breath and there was concern regarding aspiration. He was treated with Solu-Medrol IV and he has had his chest x-ray followed. He has also been placed on levofloxacin. He is a past smoker. Chest x-ray showed some left lower lobe opacities, thought to be consistent with atelectasis versus pneumonia. He was seen by speech therapy with recommendations for mechanical soft, ground diet with some ongoing instructions recommended. He has now been admitted for acute in-hospital inpatient rehabilitation. PAST MEDICAL HISTORY: Includes atrial fibrillation, on long-term anticoagulation, history of an FL, coronary artery disease with cardiac stents, diabetes mellitus type 2, shingles, hypertension, hyperlipidemia, chronic back pain, COPD, peripheral neuropathy, and postherpetic neuralgia. PAST SURGICAL HISTORY: Cholecystectomy, deviated septum repair, AICD with pacemaker placement. MEDICATIONS: Please see the full medication listing. ALLERGIES: LISINOPRIL. SOCIAL HISTORY: Lives in a house alone. He notes he is , but is [address] [address] HISTORY AND PHYSICAL Name: CHERISE SERRANO Room #: 503-P [facility].#: [id number] Admission: 05/05/20 Attend Phys: Eric Cortez MD Discharge: Date of : 41 Report #: [id number] and his lives in [place], apparently near their daughter. He has two sisters in the area that are involved and are retired. He noted that his house is a lot of things in the hallway boxes, etc. Apparently, his sisters have tried to clear some of it out in the past, but he still has a lot of it on the way. He has 3 steps in to the house with 12 into the basement. No handrails. 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 REVIEW OF SYSTEMS: No current complaints of chest pain, shortness of breath or abdominal discomfort. PHYSICAL EXAMINATION: GENERAL: A 79-year-old male in no obvious distress. VITAL SIGNS: Last recorded temperature 97.9, pulse 65, respirations 18, and blood pressure 126/64. The patient is alert. He is in no distress. HEENT: Facies appeared symmetric. HEENT: Appeared to be benign. CHEST: Some decreased breath sounds throughout, otherwise sounded clear. CARDIOVASCULAR: Sounded irregular. ABDOMEN: Bowel sounds positive, nontender. GENITOURINARY AND RECTAL: Deferred. EXTREMITIES: Functional range of motion of the upper and lower extremities, I would grade his strength at 3+ to 4-/5. He has been min assist coming to stand. He does have some decreased sensation, left large toe to proprioception. ASSESSMENT: A 79-year-old white male with the following problem list: 1. Multifactorial gait instability. 2. Multiple falls. 3. Hypotension with also periods of hypertension. 4. Acute renal insufficiency superimposed on chronic kidney disease. 5. Respiratory insufficiency, was treated with IV Solu-Medrol. 6. History of chronic obstructive pulmonary disease with recent exacerbation. 7. Peripheral neuropathy. 8. Diabetes mellitus type 2. 9. Past tobacco. PLAN: The patient has been admitted for acute in-hospital inpatient rehabilitation. From a postadmission physician evaluation perspective, there are no relevant changes since the preadmission screening. Please see the above review of prior and current medical and functional conditions and comorbidities. Please see the patient's previous and current functional status. As far as risk of complications, the patient has multiple medical comorbidities as noted above. Initial plan of care involves the interdisciplinary acute inpatient rehabilitation program. Measurable functional goals would be for the patient to become modified independent with transfers, mobility and ADLs, so that the patient can hopefully return back home. Goals to improve his gait, balance, endurance, ADLs and hopefully prevent these falls. Prognosis is reasonably good [address] [address] HISTORY AND PHYSICAL Name: CHERISE SERRANO Room #: 503-P ADM IN M.R.#: [id number] Admission: 05/05/20 Attend Phys: Eric Cortez MD Discharge: Date of : 41 Report #: [id number] with estimated length of stay, likely at least 7-14 days pending progress. Potential barriers would include his multiple medical comorbidities and decreased functional status. The patient meets diagnostic criteria for an acute in-hospital inpatient rehabilitation stay. He meets the medical necessity criteria and we will have the mgmt consultant physicians continue to follow. He does have the tolerance for therapies and has appropriate discharge goals back to the home setting. <ELECTRONICALLY SIGNED> By: Eric Cortez MD 05/12/20 [id number] Eric Cortez MD /nt
[2020-05-12 20:10] VITALS: BP 107/76
--- NOTE | 2020-05-12 22:18 | NUR ---
ASSUMED CARE AT 2100 AND REPORT RECEIVED. PT ALERT AND JOVIAL, DENIES PAIN. FSBS 221 AND 10 U LISPRO GIVEN PER SSI. PT HAD HS SNACK. PT VERBALIZED UNDERSTANDING OF MOD-I ORDERS AND AGREED TO CALL IF NEEDING ASSIST. YELLOW NON-SLIP SOCKS ON, AND PT HAS CALL LIGHT IN REACH.
--- NOTE | 2020-05-13 06:03 | NUR ---
ASSUMED CARE OF PT AT 0200. PT IS A&OX4 AND VITAL SIGNS ARE STABLE. PT DENIES PAIN AT THIS TIME. PT MOD I IN ROOM. CALLED APPROPRIATELY FOR 0600 MEDICATIONS. PT ENCOUARGED TO STAND SLOWLY AND CALL NEEDED. FALL PRECAUTIONS IN PLACE AND NURSING WILL CONTINUE TO MONITOR.
[2020-05-13 08:00] VITALS: BP 128/77
--- NOTE | 2020-05-13 11:49 | NUR ---
SPOKE WITH PATIENT'S RAUL ABOUT RECOMMENDATIONS FOR SUPERVISION WITH MEDICATION AND PRODUCE CLERK AT HOME AND SHE STATED SHE IS NOT YET READY FOR HIM TO BE DISCHARGED HOME. SHE IS STILL GETTING THE HOME READY FOR HIM AND NEEDS MORE TIME. COMMUNICATED THIS TO DR PIERRE WHO STATED WE CANNOT KEEP HIM FOR THAT REASON. CONTACTED JEWELRY CONSULTANT ALISA WHO STATED SHE WILL CALL THE PATIENT'S TO DISCUSS DISCHARGE PLANS.
[2020-05-13 12:20] VITALS: BP 128/77
--- NOTE | 2020-05-13 12:29 | NUR ---
DC plan discussed with the pt's spouse. She is anxious about dc tomorrow due to her efforts to try and get the home cleaned out prior to him coming back. Case discussed with the care team and the attending. Pt doing well with his mobility and is dc ready tomorrow. updated and offered short term options for SNF/LTC. She declined. DC plan at this time is she will pick him up tomorrow evening at 6:30pm after dinner. This will give her another full day to get cleaning done. She requested HH f/u not start until 05/18. Saul was sent a referral and they can accept. They can start him on Monday the . Care team updated. Dc home with hh tomorrow as noted.
--- NOTE | 2020-05-13 15:56 | NUR ---
pT WAS IN HIS ROOM SITTING WITH HIS TRY AND OT. pT ATE HIS BREAKFAST. MEDICATIONS TAKEN ORDERED .lUNGS CLEARX2 PEDAL PULSE X 1 ON BOTH ANLKES. PT WAS ENCOURAGED TO ELEVATE LEGS AND DRINK FLUIDS . PT HAD LARGE BM TODAY. PT OOB IN HALLWAY TODAY.
[2020-05-13] MEDS ORDERED: SENNA-TIME S T1 EACH PO (17:59)
[2020-05-13] MEDS ORDERED: VITAMIN D325 MC1 PO (17:59)
[2020-05-13] MEDS ORDERED: GLUCOTROL5 MG PO (17:59)
[2020-05-13 20:15] VITALS: BP 147/94
--- NOTE | 2020-05-14 01:57 | NUR ---
UP MOD I IN ROOM, STEADY GAIT. MIRALAX IN ORANGE JUICE AT HS , MILK BY REQUEST NOW. LOOKING FORWARD TO GOING HOME TODAY. USING URINAL, BUT COULD JUST EASILY USE THE TOILET.
[2020-05-14 08:00] VITALS: BP 115/74
[2020-05-14] MEDS ORDERED: GLUCOTROL5 MG PO ×2 (09:49→12:30)
[2020-05-14] MEDS ORDERED: VENTOLIN HFA 1818 GM INH ×2 (09:49→12:30)
[2020-05-14] MEDS ORDERED: VITAMIN D325 MC1 PO ×2 (09:49→12:30)
--- NOTE | 2020-05-14 10:37 | NUR ---
ASSUMED CARE AT 0700. PATIENT IS ALERT AND ORIENTED X4. 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 LUNGS ARE CLEAR AND DEMINISHED. ABD IS SOFT WITH BSX4. PATIENT VOIDS PER URINAL. PATIENT IS MOD/I IN ROOM. NO ALARMS. UP WITH WALKER. FALL AND SAFETY PROTOCOLS IN PLACE. DENIES PAIN AT THIS TIME. WILL P/U AT 1830. CONTINUES TO PROGRESS TOWARDS D/C GOALS. WILL CONTINUE TO MONITER
[2020-05-14 11:48] VITALS: BP 128/77
--- NOTE | 2020-05-14 14:28 | NUR ---
FAXED DC ORDERS/SUMMARY TO [facility] SPOKE WITH JEREMIAH IN ADM SHE RECEIVED ORDERS AND WILL CALL PT TO ARRANGE VISITS.
--- NOTE | 2020-05-14 15:01 | NUR ---
Spoke with pt's spouse Rosemarie this am to confirm the dc plan for 6:30pm this evening. Nursing aware. HH confirmed with [facility] for soc monday the . Rosemarie also notes that he pt did not have his drivers lic or VA card after moving from the er to [facility] and feels it has been lost. She notes that the rehab staff have looked for it as well with no success. [employer] contacted the ER and security and they do not have any id/cards for the pt. Pt rep was contacted and requested to f/u with pt's spouse.
[2020-05-14 17:09] VITALS: BP 120/70
--- NOTE | 2020-05-14 19:40 | NUR ---
PATIENT GIVEN D/C INSTRUCTIONS AND SCRIPTS. PATIENT VERBALIZED UNDERSTANDING. PATIENT D/C'D TO ER PARKING LOT WITH . INSTRUCTIONS GIVEN TO . PATIENT AMBULATED WITH SBA TO PASSENGER SIDE OF CAR. SEATBELT APPLIED.
== END 2020-05-14 18:30 | disposition home health service (06) | DRG 91 ==
PROVIDERS: Nurse Practitioner; Nurse Practitioner Family; ADMIT Physical Medicine & Rehabilitation; ATTEND Physical Medicine & Rehabilitation
DX: R26.9 Unspecified abnormalities of gait and mobility (principal); J96.21 Acute and chronic respiratory failure with hypoxia; J69.0 Pneumonitis due to inhalation of food and vomit; N17.9 Acute kidney failure, unspecified; B02.29 Other postherpetic nervous system involvement; R53.81 Other malaise; I48.91 Unspecified atrial fibrillation; I25.10 Atherosclerotic heart disease of native coronary artery without angina pectoris; E78.5 Hyperlipidemia, unspecified; E11.42 Type 2 diabetes mellitus with diabetic polyneuropathy; J44.9 Chronic obstructive pulmonary disease, unspecified; G89.29 Other chronic pain; M54.9 Dorsalgia, unspecified; I95.9 Hypotension, unspecified; N18.9 Chronic kidney disease, unspecified; I12.9 Hypertensive chronic kidney disease with stage 1 through stage 4 chronic kidney disease, or unspecified chronic kidney disease; D69.6 Thrombocytopenia, unspecified; E11.22 Type 2 diabetes mellitus with diabetic chronic kidney disease; Z95.5 Presence of coronary angioplasty implant and graft; I25.2 Old myocardial infarction; Z90.49 Acquired absence of other specified parts of digestive tract; Z95.810 Presence of automatic (implantable) cardiac defibrillator; Z88.8 Allergy status to other drugs, medicaments and biological substances; G31.84 Mild cognitive impairment of uncertain or unknown etiology; F41.8 Other specified anxiety disorders; Z79.82 Long term (current) use of aspirin; Z79.899 Other long term (current) drug therapy; E55.9 Vitamin D deficiency, unspecified; G47.00 Insomnia, unspecified
CPT/HCPCS: 10112